=== PATIENT | male | born 1975 | race Caucasian/White ===

== ENCOUNTER 2017-10-28 09:48 | Observation (INO) | payer MEDICAID, SELFPAY ==
[2017-10-28] MEDS ORDERED: Nitroglycerin 2% Ointment 1 INCH/1 GM Packet ONE (10:22)
[2017-10-28 10:40] LABS: #Basophils 0.1 thou/uL (0.0-0.2); #Eosinphils 0.1 thou/uL (0.0-0.7); #Lymphocytes 1.5 thou/uL (1.20-3.40); #Monocytes 0.4 thou/uL (0.11-0.59); #Neutrophils 8.8 thou/uL (1.40-6.50); %Basophils 0.7 % (0.0-1.0); %Eosinophils 0.9 % (0.0-10.0); %Neutrophils 80.4 % (42.0-75.0); Mean Corpuscular Hemoglobin 33.8 pg (27.0-31.0); Mean Corpuscular Volume 96.4 fL (78.0-98.0); Mean Platelet Volume 7.6 fL (7.4-10.4); Platelet Count 147 thou/uL (130-400); RBC Distribution Width 11.6 % (11.5-14.5); Red Blood Cell (RBC) Count 4.15 mill/uL (4.70-6.10); White Blood Cell (WBC) Count 10.9 thou/uL (4.8-10.8)
[2017-10-28 11:05] LABS: ALT (SGPT) 40 U/L (8-55); AST (SGOT) 191 U/L (5-34); Albumin 4.5 g/dL (3.5-5.0); Alkaline Phosphatase 597 U/L (40-150); Anion Gap 27 mmol/L (10-20); BUN (Urea Nitrogen) 4 mg/dL (8.9-20.6); Bilirubin, Total 1.3 mg/dL (0.2-1.2); CK (CPK) 79 U/L (30-200); Calc. Creatinine Clearance 0 mL/min (70-130); Calcium 9.4 mg/dL (7.8-10.44); Carbon Dioxide 21 mmol/L (22-29); Chloride 94 mmol/L (98-107); Estimated GFR-MDRD Greater than 90; Globulin 4.4 g/dL (2.4-3.5); Glucose 100 mg/dL (70-105); Potassium 3.6 mmol/L (3.5-5.1); Protein, Total 8.9 g/dL (6.0-8.3); Sodium 138 mmol/L (136-145)
[2017-10-28 11:09] LABS: CKMB 1.1 ng/mL (0-6.6); Troponin I Less than 0.010 ng/mL (< 0.028)
--- NOTE | 2017-10-28 11:18 | RAD ---
CHEST 1 VIEW: Date: 10/28/17 HISTORY: Chest pain. COMPARISON: None. FINDINGS: Normal cardiac silhouette. Pulmonary vessels and hilum are normal. Costophrenic angles are clear. No consolidation or mass. No pneumothorax or osseous abnormalities. IMPRESSION: No acute cardiopulmonary process. POS: [facility]
[2017-10-28] MEDS ORDERED: Senokot 8.6 MG TAB PO PRN (11:51)
[2017-10-28] MEDS ORDERED: Nitroglycerin 0.4 MG TAB (25 Tab Bottle) PO PRN (11:53)
[2017-10-28] MEDS ORDERED: Nicotine 14 MG PATCH TD SCH ×2 (12:00→12:30)
--- NOTE | 2017-10-28 12:25 | HP ---
PRIMARY CARE PROVIDER: None. CHIEF COMPLAINT: Chest pain. HISTORY OF PRESENT ILLNESS: Mr. Feliciano is a pleasant 42-year-old gentleman, who was seen at [facility] on 10/28/2017. He presented to the emergency room complaining of chest pain. He reports that about 8 years ago, he was diagnosed with tuberculosis. He was treated for it. A norm se used to his house and using the medication. During one of those visits, he was found to have elev ated blood pressure. He was started on blood pressure medication and was switched through several di fferent blood pressure medications because his blood pressure continued to be high. He stopped takin g blood pressure medications altogether. last December, he had back surgery. At that time, he was noted to have elevated blood pressure and wa s restarted on the blood pressure medications, but he subsequently stopped taking them. He reports that since last December, he has had on and off chest pain, retrosternal, occasionally jenna p, occasionally dull, 8-9/10 at its worst, nonradiating, no known aggravating or relieving factors. The chest pain is accompanied by lightheadedness and diaphoresis, but not by shortness of breath. He denies any cough or fever. His last alcohol drink was at 9:00 a.m. today. REVIEW OF SYSTEMS: All other systems reviewed and found to be negative. PAST MEDICAL HISTORY: Hypertension. PAST SURGICAL HISTORY: Low back surgery in 12/2016. SOCIAL HISTORY: The patient drinks vodka around the clock. He smokes half a pack of cigarettes a da y. He denies recreational drug use. FAMILY HISTORY: No family history of coronary artery disease. ALLERGIES: No known drug allergies. CURRENT MEDICATIONS: None. PHYSICAL EXAMINATION: GENERAL: Mr. Feliciano is awake and alert, not in acute distress. He is at times tearful. VITAL SIGNS: Blood pressure is 144/95, pulse 97, respiratory rate 14, and oxygen saturation 97% on r oom air. He is afebrile. EYES: No scleral icterus. No conjunctival pallor. He has conjunctival erythema. ENT: Moist mucosal membranes, no oropharyngeal erythema or exudates. NECK: Supple, nontender, trachea is midline. RESPIRATORY: Accessory muscles of breathing are not active. Chest wall movements are symmetric bila terally. LUNGS: Clear to auscultation without wheeze, rhonchi or crepitations. CARDIOVASCULAR: S1 and S2 are heard, regular. Peripheral pulses palpable. No carotid bruit, no per icardial rub. ABDOMEN: Soft, nontender, bowel sounds are heard, no hepatomegaly, no splenomegaly. NEUROLOGIC: Cranial nerves II-XII intact. Deep tendon reflexes are 2+. MUSCULOSKELETAL: Power is 5/5 in all 4 extremities. SKIN: Multiple tattoos present. LYMPHATIC: No cervical lymphadenopathy. PSYCHIATRIC: Occasionally tearful, oriented to person and place, not to time. LABORATORY DATA: Mr. Feliciano's labs and investigations were reviewed. I reviewed his electrocardio gram, which shows normal sinus rhythm with diffuse T-wave flattening/inversion. I also reviewed his chest x-ray, which does not show any pulmonary infiltrates. He has leukocytosis with 10,900 white ce lls, of which 80% are neutrophils, normal hemoglobin, normal platelet count, normal sodium, normal po tassium, decreased carbon dioxide of 21, elevated anion gap of 27, low creatinine of 0.58, normal abhilash cium, elevated total bilirubin of 1.3, elevated AST of 191, normal ALT of 40, elevated alkaline phosp hatase of 597, normal creatinine kinase, elevated total protein of 8.9 and elevated globulin of 4.4. Troponin I is normal. ASSESSMENT AND PLAN: Mr. Feliciano is a pleasant 42-year-old gentleman, who was seen at [facility] on 10/28/2017. His problem list includes: 1. Chest pain: Mr. Parry will be admitted to the hospital for further workup. I am ordering a nu clear stress test. We will also monitor him on telemetry. Further management depending on outcome o f the test. 2. Alcohol abuse: Patient has been counseled regarding alcohol cessation. We will start him on ASE protocol. 3. Anion gap metabolic acidosis. Likely secondary to lactic acidosis from chronic alcohol abuse. A lso, it is possible that he has a starvation ketosis. I will check a beta hydroxybutyrate level. We will check lactate level. We will provide intravenous fluids. 4. Abnormal liver function test: Likely secondary to chronic alcohol abuse. We will recheck his LF Ts tomorrow. LEVEL OF RISK: High. LEVEL OF COMPLEXITY: High.
[2017-10-28] MEDS ORDERED: Acetaminophen 500 MG TAB ONE ×2 (12:27→12:31)
[2017-10-28 13:08] LABS: Lactic Acid 2.3 mmol/L (0.5-2.2)
[2017-10-28 14:03] LABS: Troponin I Less than 0.010 ng/mL (< 0.028)
[2017-10-28] MEDS: Sodium Chloride 0.9% 1,000 ML IV SCH (16:16)
[2017-10-28 16:19] VITALS: BMI 19.3
[2017-10-28 16:53] LABS: Troponin I Less than 0.010 ng/mL (< 0.028)
[2017-10-28] MEDS: Ondansetron HCl/PF 4 MG/2 ML Vial IVP PRN ×2 (17:22→23:06)
[2017-10-28] MEDS ORDERED: Diazepam 5 MG TAB PO SCH (18:15)
[2017-10-29] MEDS: Sodium Chloride 0.9% 1,000 ML IV SCH (00:18)
[2017-10-29 05:12] LABS: ALT (SGPT) 32 U/L (8-55); AST (SGOT) 161 U/L (5-34); Albumin 3.9 g/dL (3.5-5.0); Alkaline Phosphatase 505 U/L (40-150); Anion Gap 23 mmol/L (10-20); BUN (Urea Nitrogen) 4 mg/dL (8.9-20.6); Calc. Creatinine Clearance 117 mL/min (70-130); Calcium 8.7 mg/dL (7.8-10.44); Carbon Dioxide 22 mmol/L (22-29); Chloride 96 mmol/L (98-107); Estimated GFR-MDRD Greater than 90; Globulin 3.5 g/dL (2.4-3.5); Glucose 82 mg/dL (70-105); Potassium 3.1 mmol/L (3.5-5.1); Protein, Total 7.4 g/dL (6.0-8.3); Sodium 138 mmol/L (136-145)
[2017-10-29 08:28] LABS: Lactic Acid 0.7 mmol/L (0.5-2.2)
[2017-10-29] MEDS ORDERED: Multivitamins, Adult 10 ML, Thiamine HCl 100 MG, Folic Acid 1 MG in Dextrose 5 %-0.45 %... IV SCH (09:00)
[2017-10-29] MEDS ORDERED: Aspirin 325 MG TAB PO SCH ×3 (09:00→13:30)
[2017-10-29] MEDS ORDERED: Nicotine 14 MG PATCH TD SCH (09:00)
[2017-10-29] MEDS ORDERED: Regadenoson 0.4 MG/5 ML SYRINGE ONE (10:39)
--- NOTE | 2017-10-29 11:32 | NM ---
CARDIAC SPECT: CLINICAL HISTORY: 42-year-old male with chest pain, hypertension, and smoker. TECHNIQUE: A myocardial perfusion scan was performed using the single isotope one day protocol with technetium-9 9m sestamibi. 10 mCi were injected intravenously for the rest exam followed by 30 mCi for the stress exam. Pharmacologic stress with Adenosine was monitored and interpreted by Aj Burgos NP. FINDINGS: No fixed or reversible defects are seen. GATED SPECT LVEF: 44%. WALL MOTION EXAM: Global hypokinesis. IMPRESSION: No evidence of reversible ischemia. POS: [facility]
--- NOTE | 2017-10-29 12:13 | PDOC.PN ---
- Subjective Encounter Start Date: 10/29/17 Encounter Start Time: 12:11 Subjective: chronic atypical chest pain - Objective Vital Signs & Weight: Vital Signs (12 hours) Temp Pulse Resp BP BP Pulse Ox 10/29/17 11:52 98.2 F 90 20 129/88 99 10/29/17 08:00 98.6 F 100 18 10/29/17 03:35 98.6 F 100 18 156/70 H 94 L 10/29/17 02:20 96 Weight Weight 127 lb 8 oz I&O: 10/28/17 10/29/17 10/30/17 06:59 06:59 06:59 Intake Total 1000 Output Total 300 Balance 700 Result Diagrams: 10/28/17 10:31 10/29/17 04:25 Phys Exam - Physical Examination Neck: no JVD Respiratory: clear to auscultation bilateral Cardiovascular: RRR, no significant murmur Gastrointestinal: soft, non-tender, positive bowel sounds Musculoskeletal: no edema Dx/Plan (1) Chest pain Code(s): R07.9 - CHEST PAIN, UNSPECIFIED Status: Acute Qualifiers: Chest pain type: other chest pain Qualified Code(s): R07.89 - Other chest pain; R07.8 - Other chest pain (2) Alcoholism Code(s): F10.20 - ALCOHOL DEPENDENCE, UNCOMPLICATED Status: Chronic (3) Hepatitis, alcoholic Code(s): K70.10 - ALCOHOLIC HEPATITIS WITHOUT ASCITES Status: Acute Qualifiers: Ascites presence: without ascites Qualified Code(s): K70.10 - Alcoholic hepatitis without ascites - Plan banana bag -: cardiology consult * .
--- NOTE | 2017-10-29 13:33 | CON ---
DATE OF CONSULTATION: 10/29/2017 REASON FOR CONSULTATION: Chest pain and abnormal stress test. HISTORY OF PRESENT ILLNESS: Mr. Feliciano is a very pleasant 42-year-old white gentleman who comes to the hospital for chest pain. He has a history of alcohol use, a large amount daily. He cannot func tion without drinking his vodka. He came in for chest pain. He has been having on and off pain for the last few months, occasional sharp. He came in as it was just not getting any better. He had neg ative troponins x3 so he underwent a stress test, nuclear stress and he was found to have no evidence of reversible ischemia; however, his LV function was reduced at 44% with global hypokinesis. He tel ls me that he has been told in the past that he does have a weak heart. He does not remember exactly how much, he just remembers being told that his heart had to pump too hard. Otherwise, he tells me that he does not like to drink, but he feels he has to, otherwise, he will go into withdrawal. He h as tried it in the past. He had hallucinations back in April when he had a back surgery. PAST MEDICAL HISTORY: 1. Hypertension. 2. Noncompliance. 3. Alcohol abuse. PAST SURGICAL HISTORY: Low back surgery in December of last year. OUTPATIENT MEDICATIONS: None. ALLERGIES: No known drug allergies. SOCIAL HISTORY: Drinks vodka pretty much all day long, as much as he can get his hands on. He smoke s half a pack of cigarettes a day and no drug use. FAMILY HISTORY: Noncontributory. REVIEW OF SYSTEMS: Twelve point review of systems was done and is all negative unless stated in the history of present illness. PHYSICAL EXAMINATION: VITAL SIGNS: Temperature 98.2, pulse 90, respiration rate 20, satting 99% on room air, blood pressur e 129/88. GENERAL: Awake, alert, oriented x3, in no distress. He has a little tremor on both hands. He tells me he feels he might be going into withdrawal soon. HEENT: Normocephalic, atraumatic. NECK: Supple. LUNGS: Clear. CARDIOVASCULAR: S1, S2, no S3, S4, no murmurs. ABDOMEN: Soft with positive bowel sounds. EXTREMITIES: No edema. SKIN: Warm and dry. LABORATORY WORK: Reviewed. Troponins were negative x3. CBC with a white count of 10, hemoglobin of 14, hematocrit of 40, platelet count of 147. Chemistries with anion gap metabolic acidosis at 23, c tarsha in at 27, creatinine 0.68 with a normal GFR. AST is 191, back down to 161, ALT 32, alkaline phos phatase of 505, albumin of 3.9. Beta hydroxybutyrate was elevated as well. EKG was reviewed. Stress test was reviewed. Chest x-ray was reviewed. ASSESSMENT AND PLAN: 1. New onset dilated cardiomyopathy: Most likely nonischemic from alcohol use. 2. Chest pain. No ischemia on MPI. 3. Alcohol abuse. 4. Tobacco use. PLAN: 1. Alcohol cessation counseling was performed. 2. We will start him on heart failure medications. We will put him on Coreg 3.125 mg b.i.d., and li sinopril 2.5 mg daily. His blood pressures being in the 150s should be able to tolerate this. 3. The biggest problem with him is going to be compliance as he has been on blood pressure medicatio ns in the past several times and he just stops them a few days later. I told him that alcohol is kil ling his heart muscle and eventually this is going to be his demise. He states that he would like to stop drinking, but he always goes into withdrawal so he feels the need to continue to drink. If he goes into withdrawal here I would advise keeping him in the hospital until he goes through his withdr awal process. 4. We will get an echocardiogram today to have a new baseline and make sure his valves are not an is marcello. Thank you for allowing me to participate in the care of your patient. I will follow.
[2017-10-29 15:55] VITALS: BP 140/92; TEMP 99.6
[2017-10-29] MEDS ORDERED: Carvedilol 3.125 MG TAB PO SCH (17:00)
--- NOTE | 2017-10-29 22:18 | DIS ---
DATE OF ADMISSION: 10/28/2017 DATE OF DISCHARGE: 10/29/2017 [facility] call admission for Court. DISPOSITION: Discharge to home. DISCHARGE MEDICATIONS: Lisinopril 2.5 mg a day, Coreg 3.125 mg twice a day, and thiamine 100 mg a da y. FINAL DIAGNOSES: Cardiomyopathy, probably alcoholic, noncardiac chest pain, alcoholic hepatitis and alcoholism. DIET: No restrictions. PENDING AT THE TIME OF DISCHARGE: Nothing. CODE STATUS: FULL. HOSPITAL COURSE: The patient admitted with chest pain off and on for months. He has a history of un treated hypertension. He has a history of alcoholism. PERTINENT LABORATORY DATA: CBC: White count 10.9, hemoglobin 14.0, platelet count 147,000. His com p metabolic profile revealed a bilirubin mildly elevated 1.3 and 2.0. Increased AST 191 and 161 ____ . His EKG revealed regular sinus rhythm with nonspecific ST changes. Nuclear medicine cardiac stres s test revealed no evidence of ischemia, but an EF of 44. Dr. Dimitry Kaplan was consulted. An ech ocardiogram was done, which revealed an EF of 40% to 45%. He recommended discharge . The patie nt has been told he needs to obtain a local doctor. He will be given a list of [facility] doc tors and follow up in a week. He has been advised of the need to undergo alcohol detox at some point in time. He has been told of the risk of severe liver and cardiac damage if he continues on his cur rent alcoholic pass. He expresses understanding.
[2017-10-30] MEDS ORDERED: Lisinopril 2.5 MG TAB PO SCH (09:00)
--- NOTE | 2017-10-31 14:42 | EKG ---
Test Reason : Blood Pressure : / mmHG Vent. Rate : 101 BPM Atrial Rate : 101 BPM P-R Int : 150 ms QRS Dur : 102 ms QT Int : 392 ms P-R-T Axes : 053 -23 -03 degrees QTc Int : 508 ms Sinus tachycardia Abnormal ECG Confirmed by BRANDEE KUMAR, SHANE Catherine ([id number]), editor managing newspaper MG FOSTER ([id number]) on 10/31/2017 2:42:16 PM Referred By: Confirmed By:SHANE IRVIN MD
== END 2017-10-29 17:41 | disposition home or self-care (01) ==
LOC: ERS 09:48 → ERHOLD 11:06 → 2SW 15:25
PROVIDERS: ADMIT Internal Medicine; ATTEND Internal Medicine
DX: R07.89 Other chest pain (principal); K70.10 Alcoholic hepatitis without ascites; I11.9 Hypertensive heart disease without heart failure; I43 Cardiomyopathy in diseases classified elsewhere; F17.210 Nicotine dependence, cigarettes, uncomplicated; F10.10 Alcohol abuse, uncomplicated; E87.2 Acidosis; R79.89 Other specified abnormal findings of blood chemistry; Z86.11 Personal history of tuberculosis; Z98.890 Other specified postprocedural states; Z91.19 Patient's noncompliance with other medical treatment and regimen
CPT/HCPCS: 36415; 71045; 78452; 80053; 82010; 82550; 82553; 83605; 84484; 85025; 93005; 93017; 93306; 94760; 96360; 96361; 96365; 96366; 96375; 96376; A9500; G0378; J2405; J2785; J3411; J7042

== ENCOUNTER 2017-11-21 13:06 | Inpatient (IN) | payer SELFPAY ==
[2017-11-21 14:05] LABS: Bilirubin Small (Negative); Blood, Urine Small (Negative); Glucose, Urine (Dipstick) Negative (Negative); Leukocyte Small (Negative); Nitrite Negative (Negative); Protein, Urine (Dipstick) 100 mg/dL (Neg-Trace)
[2017-11-21 14:08] LABS: Clarity CLEAR (Clear)
[2017-11-21 14:10] LABS: Bacteria/HPF 1+ HPF (None Seen); Hyaline Casts/LPF NONE SEEN LPF (0-3 Hyaline); RBC/HPF 0-3 HPF (0-3); Squamous Epithelial 0-3 HPF (0-3)
[2017-11-21 14:12] LABS: #Basophils 0.1 thou/uL (0.0-0.2); #Eosinphils 0.1 thou/uL (0.0-0.7); #Lymphocytes 1.3 thou/uL (1.20-3.40); #Monocytes 0.4 thou/uL (0.11-0.59); #Neutrophils 7.3 thou/uL (1.40-6.50); %Basophils 0.9 % (0.0-1.0); %Eosinophils 0.8 % (0.0-10.0); %Lymphocytes 14.6 % (21.0-51.0); %Neutrophils 79.8 % (42.0-75.0); Hemoglobin 11.8 g/dL (14.0-18.0); Mean Corpuscular HGB CONC 34.1 g/dL (32.0-36.0); Mean Corpuscular Hemoglobin 32.5 pg (27.0-31.0); Mean Corpuscular Volume 95.4 fL (78.0-98.0); Mean Platelet Volume 8.8 fL (7.4-10.4); Platelet Count 79 thou/uL (130-400); RBC Distribution Width 11.6 % (11.5-14.5); Red Blood Cell (RBC) Count 3.62 mill/uL (4.70-6.10); White Blood Cell (WBC) Count 9.2 thou/uL (4.8-10.8)
[2017-11-21 14:17] LABS: Amphetamine Not Detected (NotDetected); Barbiturates Screen Not Detected (NotDetected); Benzodiazepine Screen Not Detected (NotDetected); Cocaine Metabolite Screen Not Detected (NotDetected); Medtox Reader # READER 4; Methadone Not Detected (NotDetected); Methamphetamine Not Detected (NotDetected); Opiate Screen Not Detected (NotDetected); Oxycodone Screen Not Detected (NotDetected); Phencyclidine (PCP) Not Detected (NotDetected); THC/Cannabinoid Screen Not Detected (NotDetected); Tricyclic Screen Not Detected (NotDetected)
[2017-11-21 14:18] LABS: Medtox Control Line Valid? VALID (VALID)
[2017-11-21 14:31] LABS: ALT (SGPT) 30 U/L (8-55); AST (SGOT) 115 U/L (5-34); Acetaminophen Less than 6.0 mcg/mL (10.0-30.0); Albumin 3.8 g/dL (3.5-5.0); Alcohol 270 mg/dL (Less than 10); Alkaline Phosphatase 409 U/L (40-150); Anion Gap 16 mmol/L (10-20); BUN (Urea Nitrogen) 6 mg/dL (8.9-20.6); Bilirubin, Total 0.9 mg/dL (0.2-1.2); CK (CPK) 62 U/L (30-200); Calc. Creatinine Clearance 0 mL/min (70-130); Calcium 7.9 mg/dL (7.8-10.44); Carbon Dioxide 23 mmol/L (22-29); Chloride 101 mmol/L (98-107); Estimated GFR-MDRD Greater than 90; Glucose 142 mg/dL (70-105); Potassium 3.1 mmol/L (3.5-5.1); Protein, Total 6.8 g/dL (6.0-8.3); Salicylate Less than 8.0 mg/dL (15.0-30.0); Sodium 137 mmol/L (136-145)
[2017-11-21] MEDS ORDERED: GLUCAGON IVPB SCH (15:15)
[2017-11-21] MEDS ORDERED: SODIUM CHLORIDE 0.9% IVPB SCH (15:15)
[2017-11-21] MEDS ORDERED: Atropine Sulfate 1 mg/1 ml Vial IVP PRN (16:26)
[2017-11-21] MEDS ORDERED: Dextrose 5 % And 0.9 % NaCl 1,000 ML IV SCH (16:30)
[2017-11-21 16:35] LABS: INR-International Normal Ratio 1.2; Prothrombin Time 15.7 SEC (12.0-14.7)
[2017-11-21 16:41] LABS: Magnesium 1.1 mg/dL (1.6-2.6); Phosphorus 2.3 mg/dL (2.3-4.7)
[2017-11-21] MEDS ORDERED: Ondansetron ODT 4 MG TAB PO PRN (16:47)
[2017-11-21] MEDS ORDERED: Ondansetron HCl/PF 4 MG/2 ML Vial ONE (16:47)
[2017-11-21] MEDS ORDERED: Magnesium Sulfate 4 GM in Sodium Chloride 0.9% 250 ML 250 ML IVPB SCH (17:00)
[2017-11-21] MEDS ORDERED: cefTRIAXone\\ROCEPHIN 1 GM in Sodium Chloride 0.9% 100 ML IVPB SCH (18:00)
[2017-11-21] MEDS ORDERED: Milk Of Magnesia 30 ML UDCUP PO PRN (19:36)
[2017-11-21] MEDS ORDERED: Senokot 8.6 MG TAB PO PRN (19:36)
[2017-11-21] MEDS ORDERED: Mag-Al 1200 mg/1200 mg/30 ML UDCUP PO PRN (19:36)
[2017-11-21] MEDS ORDERED: Calcium Carbonate 500 MG ChewTAB PO PRN (19:36)
--- NOTE | 2017-11-21 19:42 | HP ---
DATE OF ADMISSION: 11/21/2017 PRIMARY CARE PHYSICIAN: Cristo Torres. CHIEF COMPLAINT: Drug overdose. HISTORY OF PRESENT ILLNESS: The patient is a 42-year-old male with chronic alcoholism with cardiomyo shailesh, presented to the emergency room with above complaints. The patient was discharged from [facility] weeks ago. He presented with chest discomfort at that time. Echocardiogram showed ejectio n fraction 40%-45% range. The patient was evaluated by Cardiology. Cardiology recommended carvedilo l 3.125 twice a day along with lisinopril. Lifestyle modification including alcohol cessation was em phasized. He was discharged home in a stable condition. The patient has been frustrated since he is not getting any help with alcohol rehab due to financial issues. Around 12:30 p.m., the patient took around 15 tablets of carvedilol. He was found at home b y his girlfriend who called the EMS. His blood pressure per EMS was 70/54 that improved with IV flui ds. He also received Zofran along with glucagon by the EMS. In the emergency room, he was started o n glucagon drip. His EKG showed sinus rhythm with T-wave depression in the lateral leads. PAST MEDICAL HISTORY: 1. Cardiomyopathy with ejection fraction 40%-45% secondary to chronic alcoholism. 2. Hypertension. 3. Chronic alcoholism. PAST SURGICAL HISTORY: Low back surgery in 2017. ALLERGIES: No known drug allergies. CURRENT HOME MEDICATIONS: Carvedilol 3.125 twice a day, lisinopril 2.5 mg daily, thiamine 100 mg chelle ly. SOCIAL HISTORY: The patient currently lives at home. He drinks alcohol heavily. He also smokes up to half pack a day. He denies any other recreational drug use. FAMILY HISTORY: Negative for heart disease. REVIEW OF SYSTEMS: The following complete review of systems was negative, unless otherwise mentioned in the HPI or below: Constitutional: Weight loss or gain, ability to conduct usual activities. Skin: Rash, itching. Eyes: Double vision, pain. ENT/Mouth: Nose bleeding, neck stiffness, pain, tenderness. Cardiovascular: Palpitations, dyspnea on exertion, orthopnea. Respiratory: Shortness of breath, wheezing, cough, hemoptysis, fever or night sweats. Gastrointestinal: Poor appetite, abdominal pain, heartburn, nausea, vomiting, constipation, or diarrhea. Genitourinary: Urgency, frequency, dysuria, nocturia. Musculoskeletal: Pain, swelling. Neurologic/Psychiatric: Anxiety, depression. Allergy/Immunologic: Skin rash, bleeding tendency. PHYSICAL EXAMINATION: VITAL SIGNS: Current vital signs showed temperature 98.7, respiration 18, pulse rate of 81, blood pr essure of 106/60 with O2 saturation 93% on room air. GENERAL: A 42-year-old male, in no significant distress. Has nausea. HEENT: Head atraumatic, normocephalic. Sclerae are anicteric. Dry mucous membranes. No oral lesio n. NECK: Supple, no JVD, no carotid bruit. LUNGS: Clear to auscultation bilaterally. HEART: S1, S2 present. Regular rate and rhythm. No rubs or gallops appreciated. ABDOMEN: Soft. Bowel sounds present. No rebound or guarding. EXTREMITIES: No edema or calf tenderness. NEUROLOGIC: Grossly nonfocal, moves all four extremities. Power was 5/5 in all extremities. PSYCHIATRY: Alert, awake, oriented x3. SKIN: Warm and dry. LYMPH NODES: No palpable lymph nodes in the neck. PERIPHERAL VASCULAR: Radial pulses palpable bilaterally, low volume. MUSCULOSKELETAL: No joint swelling or tenderness. LABORATORY FINDINGS: CBC showed WBC 9.2 with hemoglobin 11.8, platelets 79. INR 1.2, PT of 15.7. S odium 137, potassium 3.1, chloride 101, bicarb 23, BUN 6, creatinine 0.61, magnesium 1.1, phosphorus 2.3, lipase of 37. TSH 6.3. His alkaline phosphatase last month was 505. Urine drug screen was neg ative. Alcohol level was 270. Urinalysis showed 4-6 wbc with 1+ bacteria. EKG by my review as disc ussed above. Echocardiogram as discussed above. IMPRESSION: 1. Drug overdose with beta blockers in a suicidal attempt. 2. Alcohol intoxication. 3. Chronic alcoholism. 4. Electrolyte abnormalities. The patient has hypokalemia and hypomagnesemia. 5. Hypertension. 6. Chronic anemia. 7. Thrombocytopenia, probably secondary to alcoholism. His platelets were in normal range last raymundo h. 8. Mild coagulopathy, probably secondary to alcoholism. 9. Suspected urinary tract infection. 10. Cardiomyopathy with ejection fraction 40%-45%, suspected to be secondary to alcohol. 11. Chronically elevated alkaline phosphatase of unclear etiology. 12. Abnormal TSH. PLAN: The patient will be monitored in the intermediate care unit. We will replace electrolytes. W e will continue IV fluids at 150 mL an hour. Continue glucagon drip. Empiric antibiotics for UTI ad d on urine cultures. Atropine as needed if patient becomes bradycardic. We will consult [facility] when p atient is clinically stable. Monitor closely for volume overload. Intake and output will be monitor ed. Plan of care was discussed with the patient. He stated understanding.
[2017-11-21 19:54] LABS: Troponin I Less than 0.010 ng/mL (< 0.028)
[2017-11-21] MEDS: Ondansetron HCl/PF 4 MG/2 ML Vial IVP PRN (20:04)
[2017-11-21 20:34] LABS: Troponin I Less than 0.010 ng/mL (< 0.028)
[2017-11-21] MEDS: D5 0.9% NS w/ 20 mEq KCl 1,000 ML IV SCH (20:54)
[2017-11-21] MEDS ORDERED: Thiamine HCl 200 MG/2 ML VIAL IM SCH (21:00)
[2017-11-21] MEDS: Lorazepam 2 MG/ML VIAL SLOW IVP PRN (21:32)
[2017-11-21] MEDS: Docusate 100 MG CAP PO SCH (21:33)
[2017-11-21] MEDS: Famotidine 20 MG TAB PO SCH (21:33)
[2017-11-21] MEDS ORDERED: Diltiazem HCl 125 MG, Admixture Fee 1 EACH in Sodium Chloride 0.9% 100 ML IVPB SCH (22:45)
[2017-11-22] MEDS: D5 0.9% NS w/ 20 mEq KCl 1,000 ML IV SCH ×2 (03:23→10:06)
[2017-11-22] MEDS: Lorazepam 2 MG/ML VIAL SLOW IVP PRN (04:15)
[2017-11-22 04:42] LABS: #Lymphocytes 0.9 thou/uL (1.20-3.40); #Monocytes 0.4 thou/uL (0.11-0.59); #Neutrophils 4.6 thou/uL (1.40-6.50); %Basophils 0.8 % (0.0-1.0); %Eosinophils 0.6 % (0.0-10.0); %Monocytes 7.4 % (0.0-10.0); %Neutrophils 76.2 % (42.0-75.0); Hemoglobin 11.6 g/dL (14.0-18.0); Mean Corpuscular HGB CONC 34.2 g/dL (32.0-36.0); Mean Corpuscular Hemoglobin 32.6 pg (27.0-31.0); Mean Corpuscular Volume 95.1 fL (78.0-98.0); Mean Platelet Volume 9.2 fL (7.4-10.4); Platelet Count 62 thou/uL (130-400); RBC Distribution Width 11.6 % (11.5-14.5); Red Blood Cell (RBC) Count 3.56 mill/uL (4.70-6.10)
[2017-11-22 05:07] LABS: ALT (SGPT) 28 U/L (8-55); AST (SGOT) 123 U/L (5-34); Albumin 3.6 g/dL (3.5-5.0); Alkaline Phosphatase 392 U/L (40-150); Anion Gap 14 mmol/L (10-20); BUN (Urea Nitrogen) 5 mg/dL (8.9-20.6); Bilirubin, Total 1.6 mg/dL (0.2-1.2); Calc. Creatinine Clearance 134 mL/min (70-130); Calcium 7.8 mg/dL (7.8-10.44); Carbon Dioxide 23 mmol/L (22-29); Chloride 105 mmol/L (98-107); Estimated GFR-MDRD Greater than 90; Globulin 2.9 g/dL (2.4-3.5); Glucose 127 mg/dL (70-105); Magnesium 1.8 mg/dL (1.6-2.6); Potassium 3.2 mmol/L (3.5-5.1); Protein, Total 6.5 g/dL (6.0-8.3); Sodium 139 mmol/L (136-145)
[2017-11-22] MEDS: Docusate 100 MG CAP PO SCH ×2 (08:17→20:19)
[2017-11-22] MEDS: Famotidine 20 MG TAB PO SCH (08:17)
[2017-11-22] MEDS: Multivit, Therapeutic 1 TAB PO SCH (08:17)
[2017-11-22] MEDS: Folic Acid 1 MG TAB PO SCH (08:17)
[2017-11-22] MEDS ORDERED: Lorazepam 1 MG TAB PO PRN (08:37)
[2017-11-22] MEDS: Magnesium Chloride 64 MG TAB PO SCH ×2 (08:55→20:15)
[2017-11-22] MEDS ORDERED: Lorazepam 2 MG/ML VIAL SLOW IVP PRN (09:00)
[2017-11-22] MEDS ORDERED: Magnesium Oxide 400 MG TAB PO SCH (09:00)
--- NOTE | 2017-11-22 12:44 | CON ---
DATE OF CONSULTATION: 11/22/2017 SERVICE: Pulmonary Medicine. REASON FOR CONSULTATION: [facility] patient. HISTORY OF PRESENT ILLNESS: The patient is a 42-year-old white male with past medical history significant for psychiatric issues. He also has a very heavy history of alcohol use and has cardiomyopathy associated with that. Either way , he was discharged from this facility about 3 weeks ago. He drinks very heavily. He presented to the emergency department after ingesting a significant amount of beta blockers, in alcohol. He was bradycardic and hypotensive. He was given some fluid resuscitation and watched closely. His blood pressure improved, his heart rate is actually back to normal. He did receive some glucagon by emergency services. He stabilized very well. He denies having any fevers, chills, cough, nausea, vomiting, diarrhea, sputum production, shortness of breath, chest pain, palpitations, abdominal discomfort , diarrhea, hot, red, swollen joints, or new arthralgias. He has not been having any night sweats. Prior to this event, he was in his usual state of health. PAST MEDICAL HISTORY: 1. Chronic systolic heart failure, secondary to a nonischemic cardiomyopathy. 2. Alcohol abuse. 3. Hypertension. PAST SURGICAL HISTORY: Chronic back pain. ALLERGIES: No known drug allergies. MEDICATIONS: List of his inpatient medications were reviewed. Multiple updates were made. SOCIAL HISTORY: He drinks heavily. He smokes a pack a day. He has a 20-pack- year history of smoking. He denies any street drugs. He has no exposure to chemicals, dust, asbestos, or tuberculosis. FAMILY HISTORY: Noncontributory. REVIEW OF SYSTEMS: General, head, ears, eyes, nose, throat, cardiovascular, respiratory, GI, , musculoskeletal, neurologic, and skin is negative except as mentioned in the HPI. PHYSICAL EXAMINATION: VITAL SIGNS: Afebrile, pulse 119, blood pressure 126/85, respirations 16, saturation 96% on room air. GENERAL: The patient is awake, alert, in no apparent distress. LUNGS: Excellent air entry. There is no prolonged expiratory phase, wheezing, rhonchi, or crackles present. HEART: Normal rate, regular. ABDOMEN: Soft, nontender, nondistended. Bowel sounds are positive. MUSCULOSKELETAL: No cyanosis or clubbing. No pitting in the bilateral lower extremities. NEUROLOGIC: Grossly nonfocal. LABORATORY DATA: WBC 6.0, hemoglobin 11.6, platelets 62,000. INR 1.2. Basic metabolic profile and liver function studies are essentially unremarkable except for a total bilirubin of 1.6, which is gently up-trending. T4 is 0.95. TSH 6.3. AST 123, gently up-trending. ALT falls within the normal limits. Alkaline phosphatase is downtrending. Urinalysis is essentially unremarkable except for minimal proteinuria. Plasma alcohol level was previously 270, but urine drug screen, salicylate, and acetaminophen were, otherwise, unremarkable. Urine cultures negative to date. ASSESSMENT: 1. Suicide attempt secondary to beta alejandro overdose. 2. Alcohol abuse. 3. Abnormal AST. 4. Thrombocytopenia secondary to alcohol abuse. 5. Chronic systolic heart failure, euvolemic. DISCUSSION AND PLAN: The patient's acute issue is over. He is at increased risk of having withdrawal-type features, none of which he demonstrates presently. Anytime he goes more than 2 days without alcohol, he does have withdrawal symptoms. He has never had any seizures. As such, we will initiate him on a benzodiazepine taper. I will replace his potassium and magnesium. At this point, he can go to telemetry, but if he starts having any hallucinations, we will need to move him back to the ICU and initiate him on Precedex with aggressive monitoring. 70 minutes have been devoted to this patient in various activities. I personally reviewed all imaging studies and laboratory data noted within this document. For fifty percent of this time, I was interacting with the patient at the bedside or coordinating care with the care team. For the remainder of the time I was immediately available to the patient in the hospital unit. JACQUELINE
[2017-11-22] MEDS ORDERED: Diltiazem 125 MG in Sodium Chloride 0.9% 100 ML IVPB SCH (12:45)
[2017-11-22] MEDS ORDERED: Potassium Chloride 20 MEQ TAB PO SCH (12:45)
[2017-11-22] MEDS ORDERED: Aspirin 325 mg Enteric Coated Tablet PO SCH (13:00)
[2017-11-22] MEDS: Lorazepam 1 MG TAB PO SCH ×3 (13:14→23:24)
[2017-11-22] MEDS ORDERED: Potassium Chloride 10 MEQ TAB PO SCH (17:00)
[2017-11-22] MEDS ORDERED: Enoxaparin Sodium 40 MG/0.4 ML SYRINGE SC SCH (21:00)
--- NOTE | 2017-11-22 23:46 | PDOC.PN ---
- Subjective Encounter Start Date: 11/22/17 Encounter Start Time: 13:30 Patient seen and examined for overdose. No new complaints. Overnight events noted - on Cardizem drip for Afib with RVR. - Objective Resuscitation Status: Resuscitation Status FULL:Full Resuscitation MAR Reviewed: Yes Vital Signs & Weight: Vital Signs (12 hours) Temp Pulse Resp BP Pulse Ox 11/22/17 20:00 98.6 F 89 18 125/89 93 L 11/22/17 17:00 120 H 20 129/85 98 11/22/17 15:37 98.8 F 113 H 20 119/76 98 Weight Weight 135 lb I&O: 11/21/17 11/22/17 11/23/17 06:59 06:59 06:59 Intake Total 1727 2205.8 Output Total 550 Balance 1177 2205.8 Result Diagrams: 11/22/17 04:12 11/22/17 04:12 Additional Labs: Accuchecks 11/22/17 11/22/17 11/22/17 11:46 04:09 00:15 POC Glucose 136 H 134 H 113 H EKG Reviewed by me: Yes (Tele Afib) Phys Exam - Physical Examination Constitutional: NAD Respiratory: no wheezing, no rales, no rhonchi, clear to auscultation bilateral Cardiovascular: no significant murmur, irregular no heaves/pulsations Gastrointestinal: soft, non-tender, no distention, positive bowel sounds Musculoskeletal: no edema, pulses present Neurological: non-focal, normal sensation, moves all 4 limbs Dx/Plan - Plan DVT proph w/SCDs IMPRESSION: 1. Drug overdose with beta blockers in a suicidal attempt. s/p Glucagon drip 2. Afib with RVR - CHADS2 VASC score - 1 3. Chronic alcoholism with Alcohol intoxication. 4. Electrolyte abnormalities - hypokalemia and hypomagnesemia. 5. Hypertension. 6. Chronic anemia. 7. Thrombocytopenia/Mild coagulopathy, probably secondary to alcoholism. 8. Cardiomyopathy with ejection fraction 40%-45%, suspected to be secondary to alcohol. 9. Chronically elevated alkaline phosphatase of unclear etiology. PLAN: Cont Cardizem drip Consult Cardio in AM NPO past MN Low dose ASA for stroke prophylaxis - No Anticoag due to low plts ASE protocol AM labs [facility] consult when medically stable Laboratory Tests 11/22/17 11/22/17 04:12 04:12 Total Bilirubin 1.6 H AST 123 H Alkaline Phosphatase 392 H Free T4 0.95 Review of Systems - Review of Systems Respiratory: negative: Cough, Dry, Shortness of Breath, Hemoptysis, SOB with Excertion, Pleuritic Pain, Sputum, Wheezing Cardiovascular: negative: chest pain, palpitations, orthopnea, paroxysmal nocturnal dyspnea, edema, light headedness, other Gastrointestinal: negative: Nausea, Vomiting, Abdominal Pain, Diarrhea, Constipation, Melena, Hematochezia, Other - Medications/Allergies Allergies/Adverse Reactions: Allergies Allergy/AdvReac Type Severity Reaction Status Date / Time No Known Drug Allergies Allergy Verified 10/28/17 11:50 Medications: Current Medications Al Hydroxide/Mg Hydroxide (Maalox) 30 ml PO Q6H PRN PRN Reason: Heartburn or Indigestion Aspirin (Ecotrin) 325 mg PO DAILY [facility] Calcium Carbonate (Tums) 1,000 mg PO Q4H PRN PRN Reason: Heartburn or Indigestion Docusate Sodium (Colace) 100 mg PO BID [facility] Last Admin: 11/22/17 20:19 Dose: Not Given Enoxaparin Sodium (Lovenox) 40 mg SC 2100 [facility] Last Admin: 11/22/17 20:27 Dose: Not Given Folic Acid (Folvite) 1 mg PO DAILY [facility] Last Admin: 11/22/17 08:17 Dose: 1 mg Diltiazem HCl 125 mg/ Sodium (Chloride) 125 mls @ 5 mls/hr IVPB INF [facility]; Protocol Last Admin: 11/22/17 23:26 Dose: 125 mls Lorazepam (Ativan) 2 mg PO Q6HR [facility] Last Admin: 11/22/17 23:24 Dose: 2 mg Lorazepam (Ativan) 2 mg SLOW IVP Q30MIN PRN PRN Reason: Anxiety/Agitation Magnesium Chloride (Slow-Mag) 64 mg PO BID [facility] Last Admin: 11/22/17 20:15 Dose: 64 mg Magnesium Hydroxide (Milk Of Magnesium) 30 ml PO DAILYPRN PRN PRN Reason: Constipation Multivitamins (Theragran) 1 tab PO DAILY [facility] Last Admin: 11/22/17 08:17 Dose: 1 tab Ondansetron HCl (Zofran Odt) 4 mg PO Q6H PRN PRN Reason: Nausea/Vomiting Ondansetron HCl (Zofran) 4 mg IVP Q6H PRN PRN Reason: Nausea/Vomiting Last Admin: 11/21/17 20:04 Dose: 4 mg Potassium Chloride (Klor-Con 10) 10 meq PO BID[facility] Last Admin: 11/22/17 17:49 Dose: 10 meq Senna (Senokot) 2 tab PO HSPRN PRN PRN Reason: Constipation Thiamine HCl (Thiamine) 100 mg PO DAILY [facility] Last Admin: 11/22/17 08:17 Dose: 100 mg
[2017-11-23] MEDS: Lorazepam 2 MG/ML VIAL SLOW IVP PRN ×5 (00:07→16:33)
[2017-11-23] MEDS: Ondansetron HCl/PF 4 MG/2 ML Vial IVP PRN (00:37)
[2017-11-23] MEDS ORDERED: Furosemide 40 MG/4 ML VIAL ONE (00:41)
[2017-11-23] MEDS ORDERED: Furosemide 40 MG/4 ML VIAL SLOW IVP SCH (00:45)
[2017-11-23 01:03] LABS: CO2 Tension 49.4 mmHg (35.0-45.0); Calcium, Ionized 1.19 mmol/L (1.12-1.30); Hemoglobin (Hb) 13.6 g/dL (14.0-18.0); Potassium - ABG Lab 4.35 mmol/L (3.70-5.30)
[2017-11-23 01:04] LABS: O2 Tension (PaO2) 51.4 mmHg (80.0-100.0); Puncture Site RBRACH
[2017-11-23] MEDS ORDERED: Lacri-Lube Opth Oint 3.5 GM TUBE EA EYE PRN (01:50)
[2017-11-23] MEDS ORDERED: PROPOFOL 20 ML ONE (01:51)
[2017-11-23] MEDS ORDERED: Propofol 1,000 MG/100 ML VIAL IV ONE (01:51)
[2017-11-23] MEDS ORDERED: DISCONTINUE PREVIOUS NARCOTIC PAIN MEDICATIONS AND BENZODIAZEPINES FS SCH (01:57)
[2017-11-23] MEDS ORDERED: Propofol BOLUS 1,000 MG/100 ML VIAL IV PRN (01:57)
[2017-11-23] MEDS ORDERED: fentaNYL Citrate/PF 2,000 MCG in Sodium Chloride 0.9% 60 ML IV SCH (01:57)
[2017-11-23] MEDS ORDERED: Fentanyl BOLUS 250 ML IVPB PRN (01:57)
[2017-11-23] MEDS ORDERED: Ventilator Sedation Protocol 1 EACH FS SCH (02:00)
[2017-11-23] MEDS ORDERED: Acetaminophen 650 MG/20.3 ML UDCUP PO PRN (02:23)
[2017-11-23 02:25] LABS: #Basophils 0.1 thou/uL (0.0-0.2); #Eosinphils 0.2 thou/uL (0.0-0.7); #Lymphocytes 3.4 thou/uL (1.20-3.40); #Monocytes 0.8 thou/uL (0.11-0.59); #Neutrophils 13.1 thou/uL (1.40-6.50); %Basophils 0.7 % (0.0-1.0); %Eosinophils 0.9 % (0.0-10.0); %Lymphocytes 19.4 % (21.0-51.0); %Monocytes 4.4 % (0.0-10.0); %Neutrophils 74.7 % (42.0-75.0); Hemoglobin 12.6 g/dL (14.0-18.0); Mean Corpuscular HGB CONC 32.7 g/dL (32.0-36.0); Mean Corpuscular Hemoglobin 32.1 pg (27.0-31.0); Mean Corpuscular Volume 98.1 fL (78.0-98.0); Mean Platelet Volume 9.6 fL (7.4-10.4); Platelet Count 107 thou/uL (130-400); RBC Distribution Width 11.6 % (11.5-14.5); Red Blood Cell (RBC) Count 3.92 mill/uL (4.70-6.10); White Blood Cell (WBC) Count 17.6 thou/uL (4.8-10.8)
[2017-11-23 02:29] LABS: Actual Bicarbonate (HCO3a) 18.3 mEq/L (22-28); Base Excess (BEa) -6.4 mEq/L (-2.0 to +3.0); CO2 Tension 33.9 mmHg (35.0-45.0); Calcium, Ionized 1.07 mmol/L (1.12-1.30); Carboxyhemoglobin (COHb) 1.2 gm% (0.0-3.0); Hemoglobin (Hb) 12.5 g/dL (14.0-18.0); Potassium - ABG Lab 3.46 mmol/L (3.70-5.30); pH, Arterial 7.35 (7.35-7.45)
[2017-11-23] MEDS ORDERED: cefTRIAXone\\ROCEPHIN 2 GM in Sodium Chloride 0.9% 100 ML IVPB SCH (02:30)
[2017-11-23 02:35] LABS: O2 Tension (PaO2) 53.2 mmHg (80.0-100.0); Puncture Site RBRACH
[2017-11-23 02:36] LABS: ALV-art Gradient 617.425 (0-20)
[2017-11-23 02:37] LABS: ALT (SGPT) 33 U/L (8-55); AST (SGOT) 147 U/L (5-34); Albumin 3.9 g/dL (3.5-5.0); Alcohol Less than 10 mg/dL (Less than 10); Alkaline Phosphatase 418 U/L (40-150); Anion Gap 18 mmol/L (10-20); BUN (Urea Nitrogen) Less than 4 mg/dL (8.9-20.6); Bilirubin, Total 2.1 mg/dL (0.2-1.2); Calc. Creatinine Clearance 112 mL/min (70-130); Calcium 8.5 mg/dL (7.8-10.44); Carbon Dioxide 19 mmol/L (22-29); Chloride 103 mmol/L (98-107); Estimated GFR-MDRD Greater than 90; Globulin 3.4 g/dL (2.4-3.5); Glucose 244 mg/dL (70-105); Potassium 4.1 mmol/L (3.5-5.1); Protein, Total 7.3 g/dL (6.0-8.3); Sodium 136 mmol/L (136-145)
[2017-11-23] MEDS ORDERED: Azithromycin 500 MG in Sodium Chloride 0.9% 250 ML 250 ML IVPB SCH (03:00)
[2017-11-23] MEDS: Sodium Chloride 0.45% 1,000 ML IV SCH ×2 (03:30→21:09)
[2017-11-23] MEDS: Multivitamins, Adult 10 ML, Folic Acid 1 MG, Thiamine HCl 100 MG in Dextrose 5 %-0.45 %... IV SCH (03:59)
--- NOTE | 2017-11-23 04:58 | PRG ---
DATE OF SERVICE: 11/23/2017 SERVICE: Pulmonary Medicine. INTERVAL HISTORY: The patient did poorly overnight. I was asked to assess the patient about 1:00 in the morning because of increasing agitation and respiratory distress. He converted into sinus rhythm in the afternoon. He did well until about 11:00 at which point he started having increasing agitation, tachycardia, and hypertension. He got a dose of Ativan, which settled him down , but a couple hours later he was increasingly agitated. He had multiple bowel movements through the night. He cannot provide me with any additional elements of the history. He is in respiratory distress, and significantly agitated. We moved him to the ICU and initiated a Precedex drip after we identified him as having an acute hypercapnic and hypoxic respiratory failure. He failed BiPAP after a very brief trial and we subsequently intubated him. PHYSICAL EXAMINATION: VITAL SIGNS: Afebrile, pulse 115, respirations 32, saturation 96% on 100% FiO2 and a PEEP of 5. GENERAL: The patient is now intubated and sedated. HEENT: Normocephalic, atraumatic. Sclerae are white, conjunctivae pink. Oral and nasal mucosa is moist without lesions. LUNGS: There is good air entry. I do not appreciate any crackles at this time. There is no prolonged expiratory phase. No wheezing is identified. HEART: Tachycardic. Regular. ABDOMEN: Soft. Nontender, nondistended, bowel sounds are positive. MUSCULOSKELETAL: No cyanosis or clubbing. There is no pitting edema. If anything, there is a little skin tenting throughout. GENITOURINARY: Acevedo catheter is now in place. NEUROLOGIC: Grossly nonfocal. He is severely agitated, however. LABORATORY DATA: Morning laboratories were sent off early. His pH is 7.2, pCO2 is 49, pO2 is 52 on a nonrebreather at that time. IMAGING: Chest x-ray following intubation demonstrates an endotracheal tube, roughly 4 cm above the level of the steve. He has got new batwing infiltrates in the bilateral hilar regions, consistent with abrupt volume overload. Heart is enlarged. The left lower lobe is cut-off, but previously terribly remarkable. ASSESSMENT: 1. Acute hypoxic and hypercapnic respiratory failure. 2. Atrial fibrillation with rapid ventricular response, returned to sinus tachycardia. 3. Flash pulmonary edema. 4. Delirium tremens. 5. Alcohol abuse. 6. Chronic systolic heart failure. DISCUSSION AND PLAN: I honestly do not think the patient is terribly volume overloaded. I believe he went into abrupt heart failure associated with his tachyarrhythmia, and hypertension. This is in the setting of delirium tremens. We intubated him and we will keep him down with propofol over the next 24 hours. We will increase our oxygen and PEEP as tolerated. I will get an ABG shortly. Morning labs are currently pending. Pulmonary Critical Care will continue to follow along. His mortality rate is likely close to 50% given the severity of his presentation. Critical care time: 30 minutes. MTDD
--- NOTE | 2017-11-23 08:11 | ULT ---
GALLBLADDER ULTRASOUND: HISTORY: Right upper quadrant pain. FINDINGS: Real-time imaging of the right upper quadrant was performed. This shows a very thick-walled gallblad steven without evidence of gallstones. There is increased echogenicity to the liver. The liver also ap pears to be enlarged. It measures approximately 23 cm in length. The common duct is normal in calib er at 3 mm. The patient was sedated and, therefore, could not be evaluated for an ultrasound Serrano' s sign. He right kidney is normal in size and not obstructed. The pancreas is obscured. IMPRESSION: Hick-walled gallbladder. Some questionable gallbladder wall edema change. No gallstones are identif ied. This could indicate an acalculous cholecystitis. It could also be secondary to intrinsic liver disease. The liver itself appears enlarged and is of increased echogenicity suggesting fatty change . POS: [facility]
[2017-11-23] MEDS ORDERED: Aspirin 325 mg Enteric Coated Tablet PO SCH (09:00)
--- NOTE | 2017-11-23 09:49 | RAD ---
PORTABLE AP CHEST: Date: 11/23/17 HISTORY: Respiratory distress. COMPARISON: 10/28/17. FINDINGS: Cardiac silhouette is within normal limits. There are increased perihilar interstitial opacities bila terally. No focal consolidation or pleural fluid is appreciated. There is persistent elevation right hemidiaphragm. No other interval change. IMPRESSION: Increased perihilar interstitial opacities which may be related to either pulmonary edema or infectio us process. Follow-up evaluation to resolution is recommended. POS: [facility]
[2017-11-23] MEDS: Famotidine 20 MG TAB PER TUBE SCH ×2 (09:59→21:09)
[2017-11-23] MEDS: Folic Acid 1 MG TAB PO SCH (10:00)
[2017-11-23] MEDS: Docusate 100 MG CAP PO SCH ×2 (10:00→21:10)
[2017-11-23] MEDS: Aspirin 81 mg Enteric Coated Tablet PO SCH (10:00)
[2017-11-23] MEDS: Multivit, Therapeutic 1 TAB PO SCH (10:00)
[2017-11-23] MEDS: metroNIDAZOLE 500 MG in Premix Bag 1 BAG IVPB SCH ×2 (10:01→18:31)
--- NOTE | 2017-11-23 10:05 | RAD ---
PORTABLE AP CHEST XRAY: DATE: 11/23/17. HISTORY: On ventilator. COMPARISON: 11/23/17 at 1222 hours. FINDINGS: Endotracheal tube is now noted in place with the tip above the level of the thoracic inlet and overly ing th eT2-3 level. Increased perihilar interstitial opacities with alveolar opacities now present a s well. The left lung base is excluded from view. Cardiac silhouette is magnified by projection. N o other interval change. IMPRESSION: 1. Interval placement of an endotracheal tube, but the tip overlies the T2-3 level and above the lev el of the thoracic inlet. 2. Bilateral perihilar, interstitial, and alveolar opacities which have increased from recent study and could be related to worsening pulmonary edema or infectious process. POS: [facility]
--- NOTE | 2017-11-23 13:26 | OP ---
DATE OF PROCEDURE: 11/23/2017 SERVICE: Pulmonary Medicine PROCEDURE: Emergent endotracheal intubation. CONSENT: Procedure was performed emergently secondary to clinical deterioration and respiratory fail ure. STAFF PHYSICIAN: Rohan Mcmillan M.D. MEDICATIONS USED: Propofol 150 mg IV push. PREOPERATIVE DIAGNOSES: 1. Acute hypoxic and hypercapnic respiratory failure. 2. Delirium tremens. POSTPROCEDURE DIAGNOSES: 1. Acute hypoxic and hypercapnic respiratory failure. 2. Delirium tremens. DESCRIPTION OF PROCEDURE: Vital sign monitoring was accomplished by noninvasive hemodynamic monitori ng, pulse oximetry, and telemetry. In the supine position, the patient was preoxygenated With BiPAP and maintained with saturations of 98%. Following induction of anesthesia, a GlideScope was inserted through the mouth offering clear identification of the posterior oropharynx and laryngeal structures with a grade I view. An 7.5 [place] endotracheal tube was visualized passing through the vocal cords . Placement was confirmed by condensation in the endotracheal tube, and biaxillary chest auscultatio n. The endotracheal tube was secured at 23 cm, measured at the teeth. The patient was placed on mec hanical ventilation with good return of volumes. Post-procedure x-ray demonstrated good location for the endotracheal tube within the trachea. ESTIMATED BLOOD LOSS: None. COMPLICATIONS: Transient hypotension which resolved after 10 minutes.
[2017-11-23] MEDS: Propofol 1,000 MG/100 ML VIAL IV PRN ×2 (14:46→21:09)
--- NOTE | 2017-11-23 18:14 | CON ---
DATE OF CONSULTATION: 11/23/2017 CARDIOLOGY CONSULTATION REASON FOR CONSULTATION: Atrial fibrillation, rapid ventricular response. HISTORY OF PRESENT ILLNESS: Mr. Feliciano is a very pleasant 42-year-old white gentleman who came to the hospital after a drug overdose. He is a chronic alcoholic who was seen just 3 weeks ago for epis ode of chest discomfort. At that time, he was found to have a reduced EF at about 40%-45% with a nuc lear stress that showed no evidence of reversible ischemia, but a reduced EF. It was thought that he had a nonischemic cardiomyopathy secondary to chronic alcohol use. He drank a large amount of alcoh ol and he told me that he cannot stop because he goes into DTs with just a couple days of not drinkin g. He otherwise has a high blood pressure in the past. On last visit, he was started on a beta bloc ker and an TRIP inhibitor for heart failure and he was counseled on cessation of alcohol use. He come s in today as he apparently took about 15 tablets of the carvedilol in hopes to harm himself. Yue coyne found him and called EMS. Blood pressure was 70s/50s. He was given IV fluids, Zofran, glucagon and brought into the hospital. In the hospital, he eventually had to be intubated. He went into de lirium tremens and had to be intubated to protect his airway. Overnight, after intubation, he went i nto atrial fibrillation RVR, heart rate in the 150s, so Cardiology is being consulted. He was placed on a Cardizem drip, slowed down and eventually converted back to sinus, currently in sinus rhythm, r emains intubated. PAST MEDICAL HISTORY: Includes, 1. Nonischemic cardiomyopathy with EF of 40%-45%. This is from a negative stress test and a history of alcohol use. 2. Hypertension. 3. Chronic alcohol abuse. PAST SURGICAL HISTORY: Includes low back surgery in 2017. OUTPATIENT MEDICATIONS: Include, 1. Carvedilol 3.125 mg b.i.d. 2. Lisinopril 2.5 mg a day. 3. Thiamine 100 mg a day. ALLERGIES: No known drug allergies. SOCIAL HISTORY: Lives at home. Drinks heavy alcohol use. Smokes half a pack a day. No other drug use. FAMILY HISTORY: Noncontributory. REVIEW OF SYSTEMS: Unobtainable as the patient is sedated and intubated. PHYSICAL EXAMINATION: VITAL SIGNS: Temperature 98.7, however, at 1:00 p.m. today was 101.5, pulse 92, respiration rate 21, satting 97% on 40% FiO2, blood pressure 93/62. GENERAL: Sedated and intubated. LUNGS: Clear. CARDIOVASCULAR: S1, S2. No S3, S4. No murmurs. ABDOMEN: Soft with good bowel sounds. EXTREMITIES: No edema. SKIN: Warm and dry. LABORATORY WORK: Reviewed. CBC with a white count of 17, hemoglobin of 12, hematocrit of 38, platel et count of 107,000. Coags were reviewed. ABG was reviewed. Chemistry was reviewed, initially pota ssium of 3.2 overnight, earlier this morning back to 4.1, total bilirubin of 2.1, AST 147, ALT 43, al kaline phosphatase 418. Free T4 was 0.93. TSH was high at 6.3, likely sick euthyroid. UA reviewed. Toxicology reviewed. Alcohol was 270 on the th, less than 10 on the th. Abdominal ultrasound was reviewed. Thick walled gallbladder with edema. No gallstones. May have acalculous cholecystitis. Fatty liver changes. ASSESSMENT AND PLAN: 1. Atrial fibrillation with rapid ventricular response. 2. Nonischemic cardiomyopathy. 3. Dilated cardiomyopathy, ejection fraction at 40%-45%. 4. Alcohol abuse. 5. Delirium tremens and alcohol withdrawal. PLAN: 1. Continue supportive care. 2. Currently in normal sinus rhythm. If to recur, I would just slow him down with diltiazem a s long as his blood pressure allows. Otherwise, we will use an amiodarone drip. He would not be a g ood candidate for long-term amiodarone given his alcohol use and possible liver issues as well as pos sibility of having another episode of suicidal ideation. It would not be as easy to get him out of w ith antiarrhythmics as it was with just about almost 50 mg of carvedilol, which is not a toxic dose. 3. Continue to monitor on telemetry once extubated and more stable. 4. Currently blood pressure is too low to restart any beta alejandro or TRIP inhibitors. 5. We will follow. Thank you for letting us to participate in the care of your patient.
--- NOTE | 2017-11-23 23:19 | PDOC.PN ---
- Subjective Encounter Start Date: 11/23/17 Encounter Start Time: 09:30 -: non-verbal Patient seen and examined for overdose/Afib. Developed respiratory failure last night requiring intubation/mech Vent. - Objective Resuscitation Status: Resuscitation Status FULL:Full Resuscitation MAR Reviewed: Yes Vital Signs & Weight: Vital Signs (12 hours) Temp Pulse Resp BP Pulse Ox 11/23/17 22:27 93 118/90 11/23/17 22:00 21 H 11/23/17 20:00 21 H 116/91 H 98 11/23/17 18:14 93 11/23/17 18:13 97 11/23/17 18:00 22 H 11/23/17 16:00 98.4 F 25 H 11/23/17 15:04 83 101/72 11/23/17 14:00 21 H 11/23/17 12:55 84 104/72 11/23/17 12:00 98.7 F 21 H 101/73 Weight Admit Weight 135 lb Weight 156 lb 8.451 oz Most Recent Monitor Data Heart Rate from ECG 92 NIBP 113/86 NIBP BP-Mean 95 Respiration from ECG 21 SpO2 93 I&O: 11/22/17 11/23/17 11/24/17 06:59 06:59 06:59 Intake Total 1727 3617.8 1966.2 Output Total 063 568 7618 Balance 1177 3287.8 590.2 Result Diagrams: 11/24/17 04:42 11/24/17 04:42 Additional Labs: Accuchecks 11/23/17 11/23/17 17:26 12:49 POC Glucose 143 H 176 H Radiology Reviewed by me: Yes (CXR - ?Pulm edema) EKG Reviewed by me: Yes (Tele ST) Phys Exam - Physical Examination Constitutional: NAD On Mech Vent Respiratory: no wheezing Bibasilar rales with rhonchi, ET tube + Cardiovascular: no rub S2S2 +, tachycardic, No heaves/pulsations Gastrointestinal: soft, positive bowel sounds No guarding/rigidity Neuro/Psych - Cannot assess due to sedation Dx/Plan - Plan DVT proph w/SCDs IMPRESSION: 1. Acute hypoxic hypercapnic respiratory failure due to Pulm Edema 2. Drug overdose with beta blockers in a suicidal attempt requiring Glucagon drip 3. Afib with RVR - CHADS2 VASC score - 1 - Converted to SR 4. Chronic alcoholism with Alcohol intoxication with subsequent withdrawal 5. ?Acalculous cholecystitis 6. Hypertension. 7. Electrolyte abnormalities - hypokalemia and hypomagnesemia. 8. Thrombocytopenia/Mild coagulopathy, probably secondary to alcoholism. 9. Cardiomyopathy with ejection fraction 40%-45%, suspected to be secondary to alcohol. 10. Chronically elevated alkaline phosphatase of unclear etiology/Chronic anemia. [facility] per Cardio Low dose ASA for stroke prophylaxis - No Anticoag due to low plts Antibiotics started Cont thiamine/folic acid ASE protocol AM labs [facility] consult when medically stable Review of Systems - Review of Systems Other: Cannot obtain due to current mentation. - Medications/Allergies Allergies/Adverse Reactions: Allergies Allergy/AdvReac Type Severity Reaction Status Date / Time No Known Drug Allergies Allergy Verified 10/28/17 11:50 Medications: Current Medications Acetaminophen (Tylenol Elixir) 650 mg PO Q6H PRN PRN Reason: temp > 102 Al Hydroxide/Mg Hydroxide (Maalox) 30 ml PO Q6H PRN PRN Reason: Heartburn or Indigestion Albuterol/Ipratropium (Duoneb) 3 ml NEB [id number] [facility] Last Admin: 11/23/17 18:13 Dose: 3 ml Aspirin (Ecotrin) 81 mg PO DAILY [facility] Last Admin: 11/23/17 10:00 Dose: 81 mg Calcium Carbonate (Tums) 1,000 mg PO Q4H PRN PRN Reason: Heartburn or Indigestion Docusate Sodium (Colace) 100 mg PO BID [facility] Last Admin: 11/23/17 21:10 Dose: Not Given Famotidine (Pepcid) 20 mg PER TUBE BID [facility] Last Admin: 11/23/17 21:09 Dose: 20 mg Folic Acid (Folvite) 1 mg PO DAILY [facility] Last Admin: 11/23/17 10:00 Dose: Not Given Dexmedetomidine HCl 200 mcg/ (Sodium Chloride) 50 mls @ 0 mls/hr IVPB INF [facility]; Protocol Stop: 11/24/17 04:00 Last Admin: 11/23/17 21:09 Dose: 50 mls Fentanyl Citrate 2,000 mcg/ (Sodium Chloride) 100 mls @ 0 mls/hr IV INF [facility]; Protocol Stop: 12/23/17 01:57 Fentanyl Citrate (Fentanyl Bolus) 250 mls @ 0 mls/hr IVPB PRN PRN PRN Reason: Breakthrough pain/agitation Stop: 12/23/17 01:57 Sodium Chloride (1/2 Normal Saline) 1,000 mls @ 50 mls/hr IV .Q20H [facility] Last Admin: 11/23/17 21:09 Dose: 1,000 mls Multivitamins 10 ml/ Folic Acid 1 mg/ Thiamine HCl 100 mg / Dextrose/Sodium Chloride 1,011.2 mls @ 75 mls/hr IV Q24HR [facility] Stop: 11/25/17 17:29 Last Admin: 11/23/17 03:59 Dose: 1,011.2 mls Metronidazole 500 mg/ Device 100 mls @ 100 mls/hr IVPB 0200,1000,1800 [facility] Last Admin: 11/23/17 18:31 Dose: 100 mls Ciprofloxacin/Dextrose 400 mg/ (Device) 200 mls @ 200 mls/hr IVPB Q12HR [facility] Last Admin: 11/23/17 21:08 Dose: 200 mls Dexmedetomidine HCl 400 mcg/ (Sodium Chloride) 100 mls @ 0 mls/hr IVPB INF [facility] ; Protocol Lorazepam (Ativan) 2 mg SLOW IVP Q1H PRN PRN Reason: Breakthrough agitation Stop: 12/23/17 01:57 Last Admin: 11/23/17 16:33 Dose: 2 mg Magnesium Hydroxide (Milk Of Magnesium) 30 ml PO DAILYPRN PRN PRN Reason: Constipation Mineral Oil/White Petrolatum (Lacri-Lube Ointment) 0 gm EA EYE PRN PRN PRN Reason: Dry Eyes Last Admin: 11/23/17 04:26 Dose: 1 drop Multivitamins (Theragran) 1 tab PO DAILY [facility] Last Admin: 11/23/17 10:00 Dose: Not Given Discontinue Previous Narcotic Pain Medications And Benzodiazepines 1 each FS .ONE [facility] Stop: 12/23/17 01:57 Ondansetron HCl (Zofran Odt) 4 mg PO Q6H PRN PRN Reason: Nausea/Vomiting Ondansetron HCl (Zofran) 4 mg IVP Q6H PRN PRN Reason: Nausea/Vomiting Last Admin: 11/23/17 00:37 Dose: 4 mg Propofol (Diprivan) 1,000 mg IV INF PRN; Protocol PRN Reason: TO ACHIEVE GOAL RASS Stop: 12/23/17 01:57 Last Admin: 11/23/17 21:09 Dose: 1,000 mg Propofol (Diprivan Bolus) 20 mg IV Q5MIN PRN PRN Reason: BREAKTHROUGH AGITATION Stop: 12/23/17 01:57 Senna (Senokot) 2 tab PO HSPRN PRN PRN Reason: Constipation Thiamine HCl (Thiamine) 100 mg PO DAILY [facility] Last Admin: 11/23/17 10:01 Dose: Not Given
[2017-11-24] MEDS: Lorazepam 2 MG/ML VIAL SLOW IVP PRN ×2 (01:10→22:28)
[2017-11-24] MEDS: metroNIDAZOLE 500 MG in Premix Bag 1 BAG IVPB SCH ×3 (01:10→18:38)
[2017-11-24] MEDS: Propofol 1,000 MG/100 ML VIAL IV PRN ×3 (02:26→19:14)
[2017-11-24] MEDS: Multivitamins, Adult 10 ML, Folic Acid 1 MG, Thiamine HCl 100 MG in Dextrose 5 %-0.45 %... IV SCH (04:29)
[2017-11-24 05:18] LABS: ALT (SGPT) 22 U/L (8-55); AST (SGOT) 81 U/L (5-34); Albumin 3.1 g/dL (3.5-5.0); Alkaline Phosphatase 264 U/L (40-150); Anion Gap 13 mmol/L (10-20); BUN (Urea Nitrogen) Less than 4 mg/dL (8.9-20.6); Bilirubin, Total 1.6 mg/dL (0.2-1.2); Calc. Creatinine Clearance 184 mL/min (70-130); Calcium 8.1 mg/dL (7.8-10.44); Carbon Dioxide 19 mmol/L (22-29); Chloride 107 mmol/L (98-107); Estimated GFR-MDRD Greater than 90; Globulin 2.8 g/dL (2.4-3.5); Glucose 115 mg/dL (70-105); Potassium 3.1 mmol/L (3.5-5.1); Protein, Total 5.9 g/dL (6.0-8.3); Sodium 136 mmol/L (136-145)
[2017-11-24 05:26] LABS: Phosphorus 1.6 mg/dL (2.3-4.7)
[2017-11-24 05:47] LABS: #Eosinphils 0.1 thou/uL (0.0-0.7); #Monocytes 0.5 thou/uL (0.11-0.59); %Basophils 0.2 % (0.0-1.0); %Eosinophils 1.2 % (0.0-10.0); %Lymphocytes 13.4 % (21.0-51.0); %Neutrophils 78.2 % (42.0-75.0); Hemoglobin 11.7 g/dL (14.0-18.0); Mean Corpuscular HGB CONC 33.4 g/dL (32.0-36.0); Mean Corpuscular Hemoglobin 32.2 pg (27.0-31.0); Mean Corpuscular Volume 96.3 fL (78.0-98.0); Mean Platelet Volume 10.8 fL (7.4-10.4); PLT Morphology Comment Appears Decreased; Platelet Count 50 thou/uL (130-400); RBC Distribution Width 11.9 % (11.5-14.5); Red Blood Cell (RBC) Count 3.63 mill/uL (4.70-6.10); White Blood Cell (WBC) Count 7.6 thou/uL (4.8-10.8)
[2017-11-24 06:50] LABS: Actual Bicarbonate (HCO3a) 20.3 mEq/L (22-28); Base Excess (BEa) -0.7 mEq/L (-2.0 to +3.0); CO2 Tension 24.7 mmHg (35.0-45.0); O2 Tension (PaO2) 79.2 mmHg (80.0-100.0); pH, Arterial 7.53 (7.35-7.45)
[2017-11-24 06:51] LABS: ALV-art Gradient 167.995 (0-20); Carboxyhemoglobin (COHb) 0.9 gm% (0.0-3.0); Potassium - ABG Lab 2.74 mmol/L (3.70-5.30); Puncture Site LRA
[2017-11-24] MEDS: Aspirin 81 mg Enteric Coated Tablet PO SCH (08:41)
[2017-11-24] MEDS: Docusate 100 MG CAP PO SCH ×2 (08:42→20:16)
[2017-11-24] MEDS: Multivit, Therapeutic 1 TAB PO SCH (08:43)
[2017-11-24] MEDS: Folic Acid 1 MG TAB PO SCH (08:43)
[2017-11-24] MEDS ORDERED: Potassium Phosphate 30 MMOL in Sodium Chloride 0.9% 500 ML IVPB SCH (09:00)
[2017-11-24] MEDS ORDERED: Magnesium Sulfate 4 GM in Sodium Chloride 0.9% 250 ML 250 ML IVPB SCH (09:00)
[2017-11-24] MEDS: Famotidine 20 MG TAB PER TUBE SCH ×2 (09:56→20:16)
--- NOTE | 2017-11-24 14:41 | PRG ---
DATE OF SERVICE: 11/24/2017 SERVICE: Pulmonary Medicine. INTERVAL HISTORY: The patient is doing great from a respiratory standpoint. His oxygen requirements have improved dramatically over the last 24 hours. He cannot provide additional elements of the his tory, but otherwise he is perfectly comfortable on a significant amount of propofol and Precedex. PHYSICAL EXAMINATION: VITAL SIGNS: Afebrile, pulse 90, blood pressure 123/80, respirations 23, saturation 97% on 31% FiO2 and a PEEP of 5 at this time. HEENT: Normocephalic, atraumatic. Sclerae are white, conjunctivae pink. Oral and nasal mucosa is m oist without lesions. LUNGS: Decent air entry. There is no prolonged expiratory phase. Crackles are present, but improve d. HEART: Normal rate, regular. ABDOMEN: Soft, nontender, nondistended. Bowel sounds are positive. MUSCULOSKELETAL: No cyanosis or clubbing. There is no pitting in the bilateral lower extremities. NEUROLOGIC: Grossly nonfocal. LABORATORY DATA: WBC 7.6, hemoglobin 11.7, platelets 50,000. INR 1.2. PH 7.53, pCO2 of 25, pO2 of 79. Basic metabolic profile and liver function studies are essentially unremarkable/improving. Magn esium, phosphorus, and potassium are all low. Plasma alcohol level has come down to below the assay limit of 10. ASSESSMENT: 1. Acute hypoxic respiratory failure, secondary to flash pulmonary edema. 2. Atrial fibrillation with rapid ventricular response, return to sinus tachycardia. 3. Delirium tremens. 4. Alcohol abuse. 5. Chronic systolic heart failure. DISCUSSION AND PLAN: The patient is doing much better today. We will drop our minute volume by decr easing his respiratory rate to 13 and his pressure support and pressure control to 13. PEEP will vera p to 5, and his FiO2 will drop to 31%. We will continue to wean away oxygen requirements through domenic e. Once he is off of the propofol, just on the Precedex, we will consider him for extubation. The p atient is much better today than he was previously and hopefully will be able to get through this wit hout additional excitement. CRITICAL CARE TIME: 30 minutes.
--- NOTE | 2017-11-24 15:23 | PDOC.CTH ---
Cardiology Progress Note - Subjective Remains intubated, sedated. No more episodes of afib. - Objective Vital Signs Temp Pulse Resp BP Pulse Ox 11/24/17 14:49 87 127/91 H 11/24/17 14:00 19 11/24/17 12:21 90 123/80 11/24/17 12:19 89 22 H 95 11/24/17 12:00 18 11/24/17 10:05 90 11/24/17 10:00 21 H 11/24/17 08:00 99.5 F 18 132/96 H 11/24/17 07:34 98 11/24/17 06:42 89 11/24/17 06:00 21 H 11/24/17 04:00 21 H Admit Weight 135 lb Weight 157 lb 3.033 oz 11/23/17 11/24/17 11/25/17 06:59 06:59 06:59 Intake Total 3617.8 3183.2 190 Output Total 330 2426 1250 Balance 3287.8 757.2 -1060 - Physical Examination General/Neuro: other: (sedated intubated. ) Neck: no JVD present Lungs: CTA, unlabored respirations Heart: RRR Abdomen: NT/ND Extremities: other: (no edema.) - Telemetry Telemetry Rhythm: NSR - Labs Result Diagrams: 11/25/17 04:30 11/25/17 04:30 Troponin/CKMB Troponin I Less than 0.010 ng/mL (< 0.028) 11/21/17 19:35 - Assessment/Plan 1. Afib RVR, back in sinus. 2. Alcohol withdrawal. 3. Nonischemic CM EF at 40-45% 4. Alcohol abuse 5. Delirium tremens. PLAN: - Remains in sinus. - Supportive care. -
--- NOTE | 2017-11-24 23:30 | PDOC.PN ---
- Subjective Encounter Start Date: 11/24/17 Encounter Start Time: 15:00 Patient seen and examined for Overdose/Resp failure. On [facility] Vent - Objective Resuscitation Status: Resuscitation Status FULL:Full Resuscitation MAR Reviewed: Yes Vital Signs & Weight: Vital Signs (12 hours) Pulse Resp BP Pulse Ox 11/24/17 22:05 86 139/94 H 11/24/17 22:00 16 11/24/17 20:00 16 96 11/24/17 18:11 85 138/95 H 11/24/17 18:08 85 18 96 11/24/17 18:00 15 11/24/17 16:00 16 11/24/17 14:49 87 127/91 H 11/24/17 14:00 19 11/24/17 12:21 90 123/80 11/24/17 12:19 89 22 H 95 11/24/17 12:00 18 Weight Admit Weight 135 lb Weight 157 lb 3.033 oz Most Recent Monitor Data Heart Rate from ECG 83 NIBP 139/94 NIBP BP-Mean 109 Respiration from ECG 16 SpO2 97 I&O: 11/23/17 11/24/17 11/25/17 06:59 06:59 06:59 Intake Total 3617.8 3183.2 2860 Output Total 330 2426 2150 Balance 3287.8 757.2 710 Result Diagrams: 11/24/17 04:42 11/24/17 04:42 Additional Labs: Accuchecks 11/23/17 23:20 POC Glucose 132 H Laboratory Tests 11/23/17 11/24/17 01:01 04:42 ABG pH 7.20 L* ABG pO2 51.4 L* ABG O2 Sat Calc/Yuri 75.7 L* Phosphorus 1.6 L Magnesium 1.0 L EKG Reviewed by me: Yes (Tele SR) Phys Exam - Physical Examination Constitutional: NAD (on Vent) Cardiovascular: RRR, no rub Gastrointestinal: soft, positive bowel sounds Musculoskeletal: no edema Neuro/Psych - Cannot assess due to current mentation Dx/Plan - Plan DVT proph w/SCDs IMPRESSION: 1. Acute hypoxic hypercapnic respiratory failure due to Pulm Edema 2. Drug overdose with beta blockers in a suicidal attempt requiring Glucagon drip. 3. Afib with RVR - CHADS2 VASC score - 1 - Converted to SR 4. Chronic alcoholism with Alcohol intoxication with subsequent withdrawal. 5. ?Acalculous cholecystitis 6. Hypertension. 7. Electrolyte abnormalities - hypokalemia and hypomagnesemia. 8. Thrombocytopenia/Mild coagulopathy, probably secondary to alcoholism. 9. Cardiomyopathy with ejection fraction 40%-45%, suspected to be secondary to alcohol. 10. Chronically elevated alkaline phosphatase of unclear etiology/Chronic anemia. PLAN: Cont ASE protocol Afib mngt per Cardio Replace Electrolytes Cont ASA for stroke prophylaxis - No Anticoag due to low plts Cont Antibiotics On Mech Vent Cont Thiamine/folic acid AM labs [facility] consult when medically stable Review of Systems - Review of Systems Other: Cannot obtain due to sedation. - Medications/Allergies Allergies/Adverse Reactions: Allergies Allergy/AdvReac Type Severity Reaction Status Date / Time No Known Drug Allergies Allergy Verified 10/28/17 11:50 Medications: Current Medications Acetaminophen (Tylenol Elixir) 650 mg PO Q6H PRN PRN Reason: temp > 102 Al Hydroxide/Mg Hydroxide (Maalox) 30 ml PO Q6H PRN PRN Reason: Heartburn or Indigestion Albuterol/Ipratropium (Duoneb) 3 ml NEB [id number] [facility] Last Admin: 11/24/17 18:08 Dose: 3 ml Aspirin (Ecotrin) 81 mg PO DAILY [facility] Last Admin: 11/24/17 08:41 Dose: 81 mg Calcium Carbonate (Tums) 1,000 mg PO Q4H PRN PRN Reason: Heartburn or Indigestion Docusate Sodium (Colace) 100 mg PO BID [facility] Last Admin: 11/24/17 20:16 Dose: 100 mg Famotidine (Pepcid) 20 mg PER TUBE BID [facility] Last Admin: 11/24/17 20:16 Dose: 20 mg Folic Acid (Folvite) 1 mg PO DAILY [facility] Last Admin: 11/24/17 08:43 Dose: 1 mg Fentanyl Citrate 2,000 mcg/ (Sodium Chloride) 100 mls @ 0 mls/hr IV INF [facility]; Protocol Stop: 12/23/17 01:57 Fentanyl Citrate (Fentanyl Bolus) 250 mls @ 0 mls/hr IVPB PRN PRN PRN Reason: Breakthrough pain/agitation Stop: 12/23/17 01:57 Sodium Chloride (1/2 Normal Saline) 1,000 mls @ 0 mls/hr IV .Q0M [facility] Last Admin: 11/23/17 21:09 Dose: 1,000 mls Multivitamins 10 ml/ Folic Acid 1 mg/ Thiamine HCl 100 mg / Dextrose/Sodium Chloride 1,011.2 mls @ 75 mls/hr IV Q24HR [facility] Stop: 11/25/17 17:29 Last Admin: 11/24/17 04:29 Dose: 1,011.2 mls Metronidazole 500 mg/ Device 100 mls @ 100 mls/hr IVPB 0200,1000,1800 [facility] Last Admin: 11/24/17 18:38 Dose: 100 mls Ciprofloxacin/Dextrose 400 mg/ (Device) 200 mls @ 200 mls/hr IVPB Q12HR [facility] Last Admin: 11/24/17 20:16 Dose: 200 mls Dexmedetomidine HCl 400 mcg/ (Sodium Chloride) 100 mls @ 0 mls/hr IVPB INF [facility] ; Protocol Last Admin: 11/24/17 19:13 Dose: 100 mls Lorazepam (Ativan) 2 mg SLOW IVP Q1H PRN PRN Reason: Breakthrough agitation Stop: 12/23/17 01:57 Last Admin: 11/24/17 22:28 Dose: 2 mg Magnesium Hydroxide (Milk Of Magnesium) 30 ml PO DAILYPRN PRN PRN Reason: Constipation Mineral Oil/White Petrolatum (Lacri-Lube Ointment) 0 gm EA EYE PRN PRN PRN Reason: Dry Eyes Last Admin: 11/23/17 04:26 Dose: 1 drop Discontinue Previous Narcotic Pain Medications And Benzodiazepines 1 each FS .ONE [facility] Stop: 12/23/17 01:57 Ondansetron HCl (Zofran Odt) 4 mg PO Q6H PRN PRN Reason: Nausea/Vomiting Ondansetron HCl (Zofran) 4 mg IVP Q6H PRN PRN Reason: Nausea/Vomiting Last Admin: 11/23/17 00:37 Dose: 4 mg Propofol (Diprivan) 1,000 mg IV INF PRN; Protocol PRN Reason: TO ACHIEVE GOAL RASS Stop: 12/23/17 01:57 Last Admin: 11/24/17 19:14 Dose: 1,000 mg Propofol (Diprivan Bolus) 20 mg IV Q5MIN PRN PRN Reason: BREAKTHROUGH AGITATION Stop: 12/23/17 01:57 Senna (Senokot) 2 tab PO HSPRN PRN PRN Reason: Constipation Thiamine HCl (Thiamine) 100 mg PO DAILY [facility] Last Admin: 11/24/17 08:43 Dose: 100 mg
[2017-11-25] MEDS: Propofol 1,000 MG/100 ML VIAL IV PRN ×2 (01:03→04:15)
[2017-11-25] MEDS: metroNIDAZOLE 500 MG in Premix Bag 1 BAG IVPB SCH ×3 (01:12→18:07)
[2017-11-25] MEDS: Multivitamins, Adult 10 ML, Folic Acid 1 MG, Thiamine HCl 100 MG in Dextrose 5 %-0.45 %... IV SCH (04:15)
[2017-11-25 04:53] LABS: Anion Gap 12 mmol/L (10-20); BUN (Urea Nitrogen) Less than 4 mg/dL (8.9-20.6); Calc. Creatinine Clearance 189 mL/min (70-130); Calcium 8.4 mg/dL (7.8-10.44); Carbon Dioxide 22 mmol/L (22-29); Chloride 109 mmol/L (98-107); Estimated GFR-MDRD Greater than 90; Glucose 112 mg/dL (70-105); Potassium 3.3 mmol/L (3.5-5.1); Sodium 140 mmol/L (136-145)
[2017-11-25 04:54] LABS: #Eosinphils 0.2 thou/uL (0.0-0.7); #Monocytes 0.7 thou/uL (0.11-0.59); #Neutrophils 4.9 thou/uL (1.40-6.50); %Basophils 0.5 % (0.0-1.0); %Eosinophils 3.2 % (0.0-10.0); %Lymphocytes 14.3 % (21.0-51.0); Hemoglobin 11.1 g/dL (14.0-18.0); Mean Corpuscular HGB CONC 32.9 g/dL (32.0-36.0); Mean Corpuscular Hemoglobin 32.1 pg (27.0-31.0); Mean Corpuscular Volume 97.4 fL (78.0-98.0); Mean Platelet Volume 10.1 fL (7.4-10.4); Platelet Count 69 thou/uL (130-400); RBC Distribution Width 11.9 % (11.5-14.5); Red Blood Cell (RBC) Count 3.46 mill/uL (4.70-6.10); White Blood Cell (WBC) Count 6.7 thou/uL (4.8-10.8)
[2017-11-25] MEDS: Docusate 100 MG CAP PO SCH ×2 (09:20→20:45)
[2017-11-25] MEDS: Famotidine 20 MG TAB PER TUBE SCH ×2 (09:20→20:45)
[2017-11-25] MEDS: Aspirin 81 mg Enteric Coated Tablet PO SCH (09:21)
[2017-11-25] MEDS: Folic Acid 1 MG TAB PO SCH (09:21)
[2017-11-25] MEDS ORDERED: Magnesium Sulfate 4 GM in Sodium Chloride 0.9% 250 ML 250 ML IVPB SCH (09:30)
[2017-11-25] MEDS: Lorazepam 2 MG/ML VIAL SLOW IVP PRN ×2 (10:15→22:13)
[2017-11-25] MEDS ORDERED: Lorazepam 2 MG/ML VIAL SLOW IVP PRN (14:17)
--- NOTE | 2017-11-25 17:55 | PRG ---
DATE OF SERVICE: 11/25/2017 SERVICE: Pulmonary Medicine. INTERVAL HISTORY: The patient is doing fairly well from a mentation standpoint. This morning, we ga ve him a propofol holiday. We continue the Precedex. He is breathing quite comfortably. He woke up cool, calm and collected for a period of time. We put him on a spontaneous breathing trial and he d id quite well. That being said, he got a little bit of excitable and ended up self extubating himsel f. We watched him for a period of time and it appeared that he was going to do just fine afterwards. He cannot provide additional elements of the history right now because of a little bit of mentation issues. Otherwise, things are going okay. Nursing reports no overnight events. PHYSICAL EXAMINATION: VITAL SIGNS: Afebrile, pulse 97, blood pressure 131/95, respirations 29, saturation 97% on 31% FiO2 and a PEEP of 5. GENERAL: The patient is awake and alert, in no apparent distress. LUNGS: Decent air entry. Crackles are minimal. There is no prolonged expiratory phase or wheezing appreciated. HEART: Normal rate, regular. ABDOMEN: Soft, nontender, nondistended. Bowel sounds are positive. MUSCULOSKELETAL: No cyanosis or clubbing. There is no pitting in the bilateral lower extremities. NEUROLOGIC: Grossly nonfocal. LABORATORY DATA: WBC 6.7, hemoglobin 11.1, platelets 69,000 and gently trending upward. Creatinine 0.52. Basic metabolic profile is otherwise unremarkable except for potassium of 3.3, magnesium 1.6. Urine cultures negative to date. ASSESSMENT: 1. Acute hypoxic respiratory failure, secondary to flash pulmonary edema, improving. 2. Atrial fibrillation with rapid ventricular response, returned to normal sinus rhythm. 3. Delirium tremens, slowly improving. 4. Alcohol abuse. 5. Chronic systolic heart failure, currently euvolemic. DISCUSSION AND PLAN: We will watch him very closely to make certain we do not have to reintubate him moving forward. We will continue our Precedex drip. We will provide him with p.r.n. Ativan if need ed. Oxygen will be weaned away as tolerated. Hopefully, once his mentation allows, we will be able to start mobilizing him. CRITICAL CARE TIME: 30 minutes.
--- NOTE | 2017-11-25 17:56 | PDOC.CTH ---
Cardiology Progress Note - Subjective He is nw extubated, He denies SOB or chest pain. He is afraid his hallucinations will start again. - Objective Vital Signs Temp Pulse Resp BP Pulse Ox 11/25/17 12:55 98 16 98 11/25/17 12:00 100.6 F H 97 11/25/17 11:51 92 L 11/25/17 11:11 101 H 152/104 H 11/25/17 10:00 17 11/25/17 08:00 15 96 11/25/17 07:00 98.5 F 11/25/17 06:28 83 153/105 H 11/25/17 06:26 82 15 96 11/25/17 06:00 17 Admit Weight 135 lb Weight 150 lb 5.684 oz 11/24/17 11/25/17 11/26/17 06:59 06:59 06:59 Intake Total 3183.2 3813 1551 Output Total 2426 3600 1800 Balance 757.2 213 -249 - Physical Examination General/Neuro: alert & oriented x3, NAD Neck: no JVD present Lungs: CTA, unlabored respirations Heart: RRR Abdomen: NT/ND Extremities: other: (no edema.) - Telemetry Telemetry Rhythm: NSR - Labs Result Diagrams: 11/25/17 04:30 11/25/17 04:30 Troponin/CKMB Troponin I Less than 0.010 ng/mL (< 0.028) 11/21/17 19:35 - Assessment/Plan 1. Afib RVR, back in sinus. 2. Alcohol withdrawal. 3. Non ischemic CM EF at 40-45% 4. Alcohol abuse 5. Delirium tremens. PLAN: - Remains in sinus. - Will restart his CHF meds in the next few days once weaned of precedex and more stable. - Replace Aj
[2017-11-25] MEDS: K-Phos Neutral 250 MG TAB PO SCH (18:04)
--- NOTE | 2017-11-25 19:48 | PDOC.PN ---
- Subjective Encounter Start Date: 11/25/17 Encounter Start Time: 13:45 Patient seen and examined for OD. Extubated. No new complaints. No overnight events - Objective Resuscitation Status: Resuscitation Status FULL:Full Resuscitation MAR Reviewed: Yes Vital Signs & Weight: Vital Signs (12 hours) Temp Pulse Resp BP Pulse Ox 11/25/17 18:21 115 H 20 97 11/25/17 12:55 98 16 98 11/25/17 12:00 100.6 F H 97 11/25/17 11:51 92 L 11/25/17 11:11 101 H 152/104 H 11/25/17 10:00 17 11/25/17 08:00 15 96 Weight Admit Weight 135 lb Weight 150 lb 5.684 oz Most Recent Monitor Data Heart Rate from ECG 112 NIBP 142/102 NIBP BP-Mean 115 Respiration from ECG 22 SpO2 93 I&O: 11/24/17 11/25/17 11/26/17 06:59 06:59 06:59 Intake Total 3183.2 3813 1551 Output Total 2426 3600 2250 Balance 757.2 213 -699 Result Diagrams: 11/25/17 04:30 11/25/17 04:30 EKG Reviewed by me: Yes (Tele SR) Phys Exam - Physical Examination Constitutional: NAD Respiratory: no wheezing, no rhonchi Bibasilar rhonchi Cardiovascular: RRR, no rub Gastrointestinal: soft, non-tender, positive bowel sounds Musculoskeletal: no edema Dx/Plan - Plan DVT proph w/SCDs IMPRESSION: 1. Acute hypoxic hypercapnic respiratory failure due to Pulm Edema 2. Drug overdose with beta blockers in a suicidal attempt requiring Glucagon drip. 3. Afib with RVR - CHADS2 VASC score - 1 - Converted to SR 4. Chronic alcoholism with Alcohol intoxication with subsequent withdrawal. 5. ?Acalculous cholecystitis - on Atbx 6. Hypertension. 7. Electrolyte abnormalities - hypokalemia and hypomagnesemia. 8. Thrombocytopenia/Mild coagulopathy, probably secondary to alcoholism. 9. Cardiomyopathy with ejection fraction 40%-45%, suspected to be secondary to alcohol. 10. Chronically elevated alkaline phosphatase of unclear etiology/Chronic anemia. PLAN: Cont Precedex drip Replace Electrolytes Cont ASA for stroke prophylaxis - No Anticoag due to low plts Cont Antibiotics On Mech Vent Cont Thiamine/folic acid AM labs [facility] consult when medically stable Review of Systems - Review of Systems Cardiovascular: negative: chest pain, palpitations, orthopnea, paroxysmal nocturnal dyspnea, edema, light headedness, other Gastrointestinal: negative: Nausea, Vomiting, Abdominal Pain, Diarrhea, Constipation, Melena, Hematochezia, Other - Medications/Allergies Allergies/Adverse Reactions: Allergies Allergy/AdvReac Type Severity Reaction Status Date / Time No Known Drug Allergies Allergy Verified 10/28/17 11:50 Medications: Current Medications Acetaminophen (Tylenol Elixir) 650 mg PO Q6H PRN PRN Reason: temp > 102 Al Hydroxide/Mg Hydroxide (Maalox) 30 ml PO Q6H PRN PRN Reason: Heartburn or Indigestion Albuterol/Ipratropium (Duoneb) 3 ml NEB [id number] [facility] Last Admin: 11/25/17 18:21 Dose: 3 ml Aspirin (Ecotrin) 81 mg PO DAILY [facility] Last Admin: 11/25/17 09:21 Dose: 81 mg Calcium Carbonate (Tums) 1,000 mg PO Q4H PRN PRN Reason: Heartburn or Indigestion Docusate Sodium (Colace) 100 mg PO BID [facility] Last Admin: 11/25/17 09:20 Dose: 100 mg Famotidine (Pepcid) 20 mg PER TUBE BID [facility] Last Admin: 11/25/17 09:20 Dose: 20 mg Folic Acid (Folvite) 1 mg PO DAILY [facility] Last Admin: 11/25/17 09:21 Dose: 1 mg Sodium Chloride (1/2 Normal Saline) 1,000 mls @ 0 mls/hr IV .Q0M [facility] Last Admin: 11/23/17 21:09 Dose: 1,000 mls Metronidazole 500 mg/ Device 100 mls @ 100 mls/hr IVPB 0200,1000,1800 [facility] Last Admin: 11/25/17 18:07 Dose: 100 mls Ciprofloxacin/Dextrose 400 mg/ (Device) 200 mls @ 200 mls/hr IVPB Q12HR [facility] Last Admin: 11/25/17 09:22 Dose: 200 mls Dexmedetomidine HCl 400 mcg/ (Sodium Chloride) 100 mls @ 0 mls/hr IVPB INF [facility] ; Protocol Last Admin: 11/25/17 09:40 Dose: 100 mls Lorazepam (Ativan) 2 mg SLOW IVP Q15MIN PRN PRN Reason: Anxiety/Agitation Magnesium Hydroxide (Milk Of Magnesium) 30 ml PO DAILYPRN PRN PRN Reason: Constipation Mineral Oil/White Petrolatum (Lacri-Lube Ointment) 0 gm EA EYE PRN PRN PRN Reason: Dry Eyes Last Admin: 11/23/17 04:26 Dose: 1 drop Ondansetron HCl (Zofran Odt) 4 mg PO Q6H PRN PRN Reason: Nausea/Vomiting Ondansetron HCl (Zofran) 4 mg IVP Q6H PRN PRN Reason: Nausea/Vomiting Last Admin: 11/23/17 00:37 Dose: 4 mg Phosphorus (Kphos Neutral) 500 mg PO TID-WM [facility] Last Admin: 11/25/17 18:04 Dose: 500 mg Senna (Senokot) 2 tab PO HSPRN PRN PRN Reason: Constipation Sodium Chloride (Flush - Normal Saline) 10 ml IVF Q12HR [facility] Sodium Chloride (Flush - Normal Saline) 10 ml IVF PRN PRN PRN Reason: Saline Flush Thiamine HCl (Thiamine) 100 mg PO DAILY [facility] Last Admin: 11/25/17 09:20 Dose: 100 mg
[2017-11-26] MEDS: metroNIDAZOLE 500 MG in Premix Bag 1 BAG IVPB SCH (02:39)
[2017-11-26] MEDS: Lorazepam 2 MG/ML VIAL SLOW IVP PRN ×4 (02:41→20:52)
[2017-11-26 07:53] LABS: #Basophils 0.1 thou/uL (0.0-0.2); #Eosinphils 0.2 thou/uL (0.0-0.7); #Lymphocytes 1.5 thou/uL (1.20-3.40); #Neutrophils 6.3 thou/uL (1.40-6.50); %Eosinophils 2.2 % (0.0-10.0); %Lymphocytes 16.7 % (21.0-51.0); %Monocytes 10.8 % (0.0-10.0); %Neutrophils 69.4 % (42.0-75.0); Hemoglobin 12.7 g/dL (14.0-18.0); Mean Corpuscular Hemoglobin 31.5 pg (27.0-31.0); Mean Corpuscular Volume 98.4 fL (78.0-98.0); Mean Platelet Volume 8.8 fL (7.4-10.4); Platelet Count 139 thou/uL (130-400); RBC Distribution Width 12.4 % (11.5-14.5); Red Blood Cell (RBC) Count 4.03 mill/uL (4.70-6.10); White Blood Cell (WBC) Count 9.1 thou/uL (4.8-10.8)
[2017-11-26 08:01] LABS: Anion Gap 13 mmol/L (10-20); BUN (Urea Nitrogen) Less than 4 mg/dL (8.9-20.6); Calc. Creatinine Clearance 154 mL/min (70-130); Calcium 8.9 mg/dL (7.8-10.44); Carbon Dioxide 21 mmol/L (22-29); Chloride 104 mmol/L (98-107); Estimated GFR-MDRD Greater than 90; Glucose 93 mg/dL (70-105); Magnesium 1.5 mg/dL (1.6-2.6); Phosphorus 3.5 mg/dL (2.3-4.7); Potassium 3.3 mmol/L (3.5-5.1); Sodium 135 mmol/L (136-145)
[2017-11-26] MEDS ORDERED: Magnesium Sulfate 2 GM in Sodium Chloride 0.9% 100 ML IVPB SCH (08:45)
[2017-11-26] MEDS ORDERED: Magnesium Sulfate 4 GM in Sodium Chloride 0.9% 250 ML 250 ML IVPB SCH (09:00)
[2017-11-26] MEDS: K-Phos Neutral 250 MG TAB PO SCH ×3 (10:00→17:16)
[2017-11-26] MEDS: Aspirin 81 mg Enteric Coated Tablet PO SCH (10:00)
[2017-11-26] MEDS: Famotidine 20 MG TAB PER TUBE SCH ×2 (10:01→20:51)
[2017-11-26] MEDS: Folic Acid 1 MG TAB PO SCH (10:01)
[2017-11-26] MEDS: Docusate 100 MG CAP PO SCH (10:01)
[2017-11-26] MEDS ORDERED: Sodium Chloride 0.65% Nasal 44 ML BOT EA NARE PRN (11:42)
[2017-11-26] MEDS ORDERED: Carvedilol 3.125 MG TAB PO SCH (11:45)
[2017-11-26] MEDS ORDERED: cloNIDine 0.1 MG TAB PO SCH (11:45)
[2017-11-26] MEDS ORDERED: Amiodarone In Dextrose 200 ML IVPB SCH (12:15)
[2017-11-26] MEDS: cloNIDine 0.1 MG TAB PO SCH ×2 (15:19→20:51)
--- NOTE | 2017-11-26 17:11 | PDOC.CTH ---
Cardiology Progress Note - Subjective He had a nose bleed. No other issues. - Objective Vital Signs Temp Pulse Resp BP Pulse Ox 11/26/17 15:19 152/104 H 11/26/17 13:07 129 H 20 92 L 11/26/17 12:52 152/104 H 11/26/17 12:00 98.2 F 11/26/17 07:00 98.1 F 11/26/17 06:28 95 11/26/17 06:25 120 H 22 H 95 Admit Weight 135 lb Weight 150 lb 9.6 oz 11/25/17 11/26/17 11/27/17 06:59 06:59 06:59 Intake Total 3813 2103.4 1500 Output Total 3600 4225 400 Balance 213 -2121.6 1100 - Physical Examination General/Neuro: alert & oriented x3, NAD Neck: no JVD present Lungs: CTA, unlabored respirations Heart: RRR Abdomen: NT/ND Extremities: other: (no edema.) - Telemetry Telemetry Rhythm: NSR - Labs Result Diagrams: 11/26/17 07:33 11/26/17 07:33 Troponin/CKMB Troponin I Less than 0.010 ng/mL (< 0.028) 11/21/17 19:35 - Assessment/Plan 1. Afib RVR, back in sinus. 2. Alcohol withdrawal. 3. Non ischemic CM EF at 40-45% 4. Alcohol abuse 5. Delirium tremens. PLAN: - Remains in sinus. - Coreg already back on board, will restart Lisinopril.
[2017-11-26] MEDS: Carvedilol 3.125 MG TAB PO SCH (17:16)
--- NOTE | 2017-11-26 17:19 | PRG ---
DATE OF SERVICE: 11/26/2017 SERVICE: Pulmonary Medicine. INTERVAL HISTORY: The patient did extremely well overnight. This morning, we turned off his Precede x, but he became very agitated once again. As such, he is back on that medication. Denies any curre nt chest pain, fevers, or chills. When he is on, he is cool, calm and collected. He is oriented x3. It looks like he is not having any hallucinations. PHYSICAL EXAMINATION: VITAL SIGNS: Afebrile, pulse 129, blood pressure 152/104, respirations 16, saturation 93% on 3 liter s nasal cannula. GENERAL: The patient is awake and alert, in no apparent distress. LUNGS: Crackles are present. There is no prolonged expiratory phase or wheezing appreciated. HEART: Normal rate, regular. ABDOMEN: Soft, nontender, nondistended. Bowel sounds are positive. MUSCULOSKELETAL: No cyanosis or clubbing. There is trace pitting in the bilateral lower extremities . NEUROLOGIC: Grossly nonfocal. LABORATORY DATA: WBC 9.1, hemoglobin 12.7, platelets 139,000 and rebounding. Sodium 135, potassium 3.3. Basic metabolic profile is otherwise unremarkable. Phosphorus is normal, magnesium 1.5. Stool lactoferrin is positive, but C. diff antigen and toxin are unremarkable. ASSESSMENT: 1. Acute hypoxic respiratory failure secondary to flash pulmonary edema, improving. 2. Atrial fibrillation with rapid ventricular response, return to sinus tachycardia. 3. Delirium tremens, slowly improving. 4. Alcohol abuse. 5. Chronic systolic heart failure, currently euvolemic. PLAN: At this rate, my suspicion is that the patient will be off Precedex hopefully by tomorrow roz bradley. Pulmonary or Critical Care will continue to follow along in this location. When he goes to the floor, we will initiate a benzodiazepine taper. We will start to mobilize him, and get him into a c hair multiple times on a daily basis. For his sinus tachycardia, calcium channel alejandro will be ini tiated.
--- NOTE | 2017-11-26 21:57 | PDOC.PN ---
- Subjective Encounter Start Date: 11/26/17 Encounter Start Time: 12:00 Patient seen and examined for OD. Nose bleeding +. Tremulous. No new complaints. No overnight events - Objective Resuscitation Status: Resuscitation Status FULL:Full Resuscitation MAR Reviewed: Yes Vital Signs & Weight: Vital Signs (12 hours) Temp Pulse Resp BP Pulse Ox 11/26/17 20:51 132/94 H 11/26/17 19:00 98.6 F 11/26/17 18:22 117 H 16 96 11/26/17 16:00 98.4 F 11/26/17 15:19 152/104 H 11/26/17 13:07 129 H 20 92 L 11/26/17 12:52 152/104 H 11/26/17 12:00 98.2 F Weight Admit Weight 135 lb Weight 150 lb 9.6 oz Most Recent Monitor Data Heart Rate from ECG 103 NIBP 134/99 NIBP BP-Mean 110 Respiration from ECG 21 SpO2 96 I&O: 11/25/17 11/26/17 11/27/17 06:59 06:59 06:59 Intake Total 3813 2103.4 2200 Output Total 3600 4225 800 Balance 213 -2121.6 1400 Result Diagrams: 11/26/17 07:33 11/26/17 07:33 EKG Reviewed by me: Yes (Tele ST 130s) Phys Exam - Physical Examination Anxious/tremors + Respiratory: no wheezing, no rhonchi Cardiovascular: no rub S1S2 +, tachycardic Gastrointestinal: soft, non-tender, positive bowel sounds Musculoskeletal: no edema Neurological: moves all 4 limbs Dx/Plan - Plan DVT proph w/SCDs IMPRESSION: 1. Acute hypoxic hypercapnic respiratory failure due to Pulm Edema 2. Drug overdose with beta blockers in a suicidal attempt requiring Glucagon drip. 3. Afib with RVR - CHADS2 VASC score - 1 - Converted to SR 4. Chronic alcoholism with Alcohol intoxication with subsequent withdrawal. 5. ?Acalculous cholecystitis 6. Hypertension. 7. Electrolyte abnormalities - hypokalemia and hypomagnesemia. 8. Thrombocytopenia/Mild coagulopathy, probably secondary to alcoholism. 9. Cardiomyopathy with ejection fraction 40%-45%, suspected to be secondary to alcohol. 10. Chronically elevated alkaline phosphatase of unclear etiology/Chronic anemia. PLAN: Precedex drip discontinued Cont ASA for stroke prophylaxis - No Anticoag due to low plts Antibiotics dced Resume Coreg Add Clonidine for alcohol withdrawal Cont Thiamine/folic acid AM labs [facility] consult when medically stable Laboratory Tests 11/26/17 07:33 Magnesium 1.5 L Review of Systems - Review of Systems Respiratory: negative: Cough, Dry, Shortness of Breath, Hemoptysis, SOB with Excertion, Pleuritic Pain, Sputum, Wheezing Cardiovascular: negative: chest pain, palpitations, orthopnea, paroxysmal nocturnal dyspnea, edema, light headedness, other - Medications/Allergies Allergies/Adverse Reactions: Allergies Allergy/AdvReac Type Severity Reaction Status Date / Time No Known Drug Allergies Allergy Verified 10/28/17 11:50 Medications: Current Medications Acetaminophen (Tylenol Elixir) 650 mg PO Q6H PRN PRN Reason: temp > 102 Al Hydroxide/Mg Hydroxide (Maalox) 30 ml PO Q6H PRN PRN Reason: Heartburn or Indigestion Albuterol/Ipratropium (Duoneb) 3 ml NEB [id number] [facility] Last Admin: 11/26/17 18:22 Dose: 3 ml Aspirin (Ecotrin) 81 mg PO DAILY [facility] Last Admin: 11/26/17 10:00 Dose: 81 mg Calcium Carbonate (Tums) 1,000 mg PO Q4H PRN PRN Reason: Heartburn or Indigestion Carvedilol (Coreg) 3.125 mg PO BID-[facility] Last Admin: 11/26/17 17:16 Dose: 3.125 mg Clonidine (Catapres) 0.1 mg PO TID [facility] Last Admin: 11/26/17 20:51 Dose: 0.1 mg Famotidine (Pepcid) 20 mg PER TUBE BID [facility] Last Admin: 11/26/17 20:51 Dose: 20 mg Folic Acid (Folvite) 1 mg PO DAILY [facility] Last Admin: 11/26/17 10:01 Dose: 1 mg Dexmedetomidine HCl 400 mcg/ (Sodium Chloride) 100 mls @ 0 mls/hr IVPB INF [facility] ; Protocol Last Admin: 11/25/17 21:08 Dose: 100 mls Lisinopril (Zestril) 2.5 mg PO DAILY [facility] Lorazepam (Ativan) 2 mg SLOW IVP Q15MIN PRN PRN Reason: Anxiety/Agitation Last Admin: 09/20/18 20:52 Dose: 2 mg Magnesium Hydroxide (Milk Of Magnesium) 30 ml PO DAILYPRN PRN PRN Reason: Constipation Ondansetron HCl (Zofran Odt) 4 mg PO Q6H PRN PRN Reason: Nausea/Vomiting Ondansetron HCl (Zofran) 4 mg IVP Q6H PRN PRN Reason: Nausea/Vomiting Last Admin: 11/23/17 00:37 Dose: 4 mg Phosphorus (Kphos Neutral) 500 mg PO TID-[facility] Last Admin: 11/26/17 17:16 Dose: 500 mg Potassium Chloride (Klor-Con) 20 meq PO BID-[facility] Last Admin: 11/26/17 17:16 Dose: 20 meq Senna (Senokot) 2 tab PO HSPRN PRN PRN Reason: Constipation Sodium Chloride (Flush - Normal Saline) 10 ml IVF Q12HR [facility] Last Admin: 11/26/17 20:51 Dose: 10 ml Sodium Chloride (Flush - Normal Saline) 10 ml IVF PRN PRN PRN Reason: Saline Flush Last Admin: 11/26/17 10:01 Dose: 10 ml Sodium Chloride ([place] Nasal [place] 0.65%) 0 ml EA NARE TID PRN PRN Reason: Nasal Congestion Thiamine HCl (Thiamine) 100 mg PO DAILY [facility] Last Admin: 11/26/17 10:00 Dose: 100 mg
[2017-11-27] MEDS: Lorazepam 2 MG/ML VIAL SLOW IVP PRN ×2 (03:36→09:41)
[2017-11-27 05:05] LABS: Anion Gap 13 mmol/L (10-20); BUN (Urea Nitrogen) 4 mg/dL (8.9-20.6); Calc. Creatinine Clearance 165 mL/min (70-130); Calcium 8.7 mg/dL (7.8-10.44); Carbon Dioxide 22 mmol/L (22-29); Chloride 104 mmol/L (98-107); Estimated GFR-MDRD Greater than 90; Glucose 95 mg/dL (70-105); Magnesium 1.7 mg/dL (1.6-2.6); Potassium 3.7 mmol/L (3.5-5.1); Sodium 135 mmol/L (136-145)
[2017-11-27] MEDS ORDERED: Potassium Chloride 20 MEQ TAB PO SCH (09:00)
[2017-11-27] MEDS ORDERED: Magnesium Sulfate 4 GM in Sodium Chloride 0.9% 250 ML 250 ML IVPB SCH (09:00)
[2017-11-27] MEDS: Famotidine 20 MG TAB PER TUBE SCH (09:41)
[2017-11-27] MEDS: Folic Acid 1 MG TAB PO SCH (09:42)
[2017-11-27] MEDS: Aspirin 81 mg Enteric Coated Tablet PO SCH (09:42)
[2017-11-27] MEDS: Lisinopril 2.5 MG TAB PO SCH (09:42)
[2017-11-27] MEDS: Carvedilol 3.125 MG TAB PO SCH ×2 (09:42→17:13)
[2017-11-27] MEDS: cloNIDine 0.1 MG TAB PO SCH ×3 (09:42→20:07)
[2017-11-27] MEDS: K-Phos Neutral 250 MG TAB PO SCH ×3 (09:43→17:13)
[2017-11-27 11:50] VITALS: BMI 22.5
--- NOTE | 2017-11-27 12:06 | PRG ---
DATE OF SERVICE: 11/27/2017 SERVICE: Pulmonary Medicine INTERVAL HISTORY: The patient is doing well from a respiratory standpoint. He denies any current ch est pain, nausea, vomiting, fevers or chills. His mentation is improving. He has not been on a Prec edex overnight. He required 4 doses of Ativan to keep him cool, calm and collected. That being said , he does not have any significant tremulousness. He is still a little bit tachycardic. PHYSICAL EXAMINATION: VITAL SIGNS: Afebrile, pulse 108, blood pressure 124/91, respirations 14, saturation 92% on room air . GENERAL: The patient is awake, alert, in no apparent distress. LUNGS: Decent air entry. Rhonchi are present. They clear with cough. There is no prolonged expira tory phase or wheezing appreciated. HEART: Normal rate, regular. ABDOMEN: Soft, nontender, nondistended. Bowel sounds are positive. MUSCULOSKELETAL: No cyanosis or clubbing. There is no pitting in the bilateral lower extremities. NEUROLOGIC: Grossly nonfocal. LABORATORY DATA: WBC 9.1, hemoglobin 12.7, platelets 139,000 and rebounding. Basic metabolic profil e is completely unremarkable except for potassium of 3.7. ASSESSMENT: 1. Acute hypoxic respiratory failure, resolving. 2. Flash pulmonary edema secondary to hypertensive episode, resolved. 3. Atrial fibrillation with rapid ventricular response, returned to sinus tachycardia. 4. Delirium tremens, slowly improving. 5. Alcohol abuse. 6. Chronic systolic heart failure, currently euvolemic. DISCUSSION AND PLAN: We will continue working with physical therapy. At this point, we will schedul e Ativan over the next 2-3 days. This will be a slow taper. He is stable for transition to the tele metry unit. He needs to be observed until he is off the anxiolytics altogether.
[2017-11-27] MEDS: Lorazepam 1 MG TAB PO SCH ×2 (14:47→20:07)
--- NOTE | 2017-11-27 15:31 | PDOC.CTH ---
Cardiology Progress Note - Subjective No new issues, no new complaints. - Objective Vital Signs Temp Pulse Resp BP Pulse Ox 11/27/17 15:03 98 F 11/27/17 14:46 132/94 H 11/27/17 11:00 99 F 11/27/17 09:42 112 H 132/94 H 11/27/17 07:00 98.7 F 11/27/17 06:28 96 11/27/17 06:27 112 H 20 96 Admit Weight 135 lb Weight 148 lb 2.41 oz 11/26/17 11/27/17 11/28/17 06:59 06:59 06:59 Intake Total 2103.4 2300 1150 Output Total 4225 1100 701 Balance -2121.6 1200 449 - Physical Examination General/Neuro: alert & oriented x3, NAD Neck: no JVD present Lungs: CTA, unlabored respirations Heart: RRR Abdomen: NT/ND Extremities: other: (no edema.) - Telemetry Telemetry Rhythm: S tach - Labs Result Diagrams: 11/26/17 07:33 11/27/17 04:27 Troponin/CKMB Troponin I Less than 0.010 ng/mL (< 0.028) 11/21/17 19:35 - Assessment/Plan 1. Afib RVR, back in sinus. 2. Alcohol withdrawal. 3. Non ischemic CM EF at 40-45% 4. Alcohol abuse 5. Delirium tremens. PLAN: - Remains in sinus. - Continue BB and ACEI at current doses.
--- NOTE | 2017-11-27 19:33 | PRG ---
DATE OF SERVICE: 11/27/2017 SUMMARY: A 42-year-old white male with chronic alcoholism and recently diagnosed cardiomyopathy, on carvedilol, presented to the hospital on 11/21/2017 with drug overdose. Last month, he was admitted at this facility and was started on carvedilol and lisinopril. The patient overdosed on carvedilol i n the setting of alcohol intoxication. He was admitted to the [facility] for close monitoring. He was on glucagon drip for beta alejandro overdose. He developed atrial fibrillation with rapid ventricular res ponse, requiring Cardizem drip. He went into severe alcohol withdrawal, requiring intubation and Pre cedex drip. Over the last 48 hours, the patient has been extubated. He had some nose bleeding yeste rday that improved with nasal packing by ER physician. He is currently in sinus rhythm. SUBJECTIVE: The patient denies any new complaints, still has some generalized tremors. Asking if he can go home. [facility] at the bedside. OBJECTIVE: VITAL SIGNS: The patient is afebrile with a blood pressure 132/94 with a heart rate still in 130S, r espiration of 20. GENERAL: A 42-year-old male in no apparent distress, anxious, generalized tremors noted. LUNGS: Clear to auscultation bilaterally. HEART: S1, S2 present. ABDOMEN: Soft, bowel sounds present. EXTREMITIES: No edema or calf tenderness. NEUROLOGIC: Grossly nonfocal. LABORATORY FINDINGS: Potassium 3.7 from 3.3 yesterday. Magnesium 1.7 from 1.5 yesterday. No CBC do ne today. Telemetry monitoring by my review showed sinus tachycardia. IMPRESSION: 1. Drug overdose with beta blockers, requiring glucagon drip (suicidal attempt). [facility] evaluated the patient today. The patient's mother will be arriving on Thursday from [place]. His mother is trying t o find an alcohol rehab in the [place] area. 2. Acute hypoxic and hypercapnic respiratory failure with pulmonary edema, requiring mechanical vent ilation. 3. Delirium tremens, improving. 4. Chronic alcoholism. 5. Hypertension. 6. Electrolyte abnormalities, improving. 7. Thrombocytopenia, improving. 8. Chronic systolic heart failure, ejection fraction 40%-45%. Carvedilol has been restarted. We wi ll continue lisinopril. 9. Atrial fibrillation with rapid ventricular response. He is currently on aspirin for stroke proph ylaxis. He is currently in sinus rhythm. 10. Chronic anemia. DISPOSITION: As discussed above. The patient is not cleared for discharge. We will continue alcoho l withdrawal protocol. Thiamine and folic acid will be continued.
[2017-11-28] MEDS: Lorazepam 2 MG/ML VIAL SLOW IVP PRN (05:41)
[2017-11-28] MEDS: Aspirin 81 mg Enteric Coated Tablet PO SCH (09:07)
[2017-11-28] MEDS: Folic Acid 1 MG TAB PO SCH (09:07)
[2017-11-28] MEDS: Carvedilol 3.125 MG TAB PO SCH ×2 (09:07→16:14)
[2017-11-28] MEDS: cloNIDine 0.1 MG TAB PO SCH ×3 (09:08→20:22)
[2017-11-28] MEDS: Lisinopril 2.5 MG TAB PO SCH (09:08)
[2017-11-28] MEDS: Lorazepam 1 MG TAB PO SCH ×3 (09:09→20:23)
[2017-11-28] MEDS: K-Phos Neutral 250 MG TAB PO SCH ×3 (09:09→16:14)
--- NOTE | 2017-11-28 11:55 | PDOC.PN ---
- Subjective Encounter Start Date: 11/28/17 Encounter Start Time: 11:54 Mr. Feliciano was seen today in follow-up of Beta-alejandro overdose, Atrial fibrillation. He says he sometimes feels like i is a little hard to breath, and feels a bit anxious, but otherwise no complaints. - Objective Resuscitation Status: Resuscitation Status FULL:Full Resuscitation MAR Reviewed: Yes Vital Signs & Weight: Vital Signs (12 hours) BP 11/28/17 04:00 157/101 H Weight Admit Weight 135 lb Weight 132 lb 11.2 oz Most Recent Monitor Data Heart Rate from ECG 98 NIBP 130/91 NIBP BP-Mean 104 Respiration from ECG 16 SpO2 86 I&O: 11/27/17 11/28/17 11/29/17 06:59 06:59 06:59 Intake Total 2300 1150 Output Total 1100 701 Balance 1200 449 Result Diagrams: 11/26/17 07:33 11/27/17 04:27 Phys Exam - Physical Examination HEENT: PERRLA, sclera anicteric Respiratory: no wheezing, no rales, no rhonchi, clear to auscultation bilateral Cardiovascular: RRR, no significant murmur, no rub no gallop Gastrointestinal: soft, non-tender, no distention, positive bowel sounds Musculoskeletal: no edema Dx/Plan (1) Suicide attempt by beta alejandro overdose Code(s): T44.7X2A - POISONING BY BETA-ADRENOCPT ANTAGONISTS, SELF-HARM, INIT Status: Acute (2) Atrial fibrillation Code(s): I48.91 - UNSPECIFIED ATRIAL FIBRILLATION Status: Acute (3) Delirium tremens Code(s): F10.231 - ALCOHOL DEPENDENCE WITH WITHDRAWAL DELIRIUM Status: Acute (4) Alcoholism Code(s): F10.20 - ALCOHOL DEPENDENCE, UNCOMPLICATED Status: Chronic - Plan * Beta- alejandro overdose- this has resolved, and he is now back on a low dose Carvediolol * Delerium tremens- resolving- he still has very mild tremor, and agitation- continue ativan as needed * Chronic systolic heart failure compensated- continue Lisinopril * Hopefully stable for [facility] evaluation soon .
--- NOTE | 2017-11-28 12:13 | PRG ---
DATE OF SERVICE: 11/28/2017 SUBJECTIVE: He was transferred to a monitored bed. OBJECTIVE: VITAL SIGNS: His blood pressure is 157/101, temperature is 98, pulse is 107, respiration rate 18. GENERAL: He appears to be encephalopathic, but felt very appropriate. CHEST: Decreased breath sounds, no wheezing. CARDIAC: Sinus tachycardia. ABDOMEN: Soft. IMPRESSION: 1. Status post respiratory failure. 2. Status post overdose and beta blockers, respiratory failure and encephalopathy. PLAN: Continue observation in the monitored bed. Eventually, he is going to need counseling. We wi ll follow while in the MICU.
--- NOTE | 2017-11-28 18:24 | EKG ---
Test Reason : OD Blood Pressure : / mmHG Vent. Rate : 090 BPM Atrial Rate : 090 BPM P-R Int : 142 ms QRS Dur : 102 ms QT Int : 444 ms P-R-T Axes : 048 -10 -01 degrees QTc Int : 543 ms Normal sinus rhythm T wave abnormality, consider anterolateral ischemia Prolonged QT Abnormal ECG Left ventricular hypertrophy Left atrial enlargement Confirmed by BRANDEE KUMAR, SHANE Catherine ([id number]), purchase request editor PETRA ZARCO ([id number]) on 11/28/2017 6:23:41 PM Referred By: Confirmed By:SHANE IRVIN MD
[2017-11-29] MEDS: Carvedilol 3.125 MG TAB PO SCH ×2 (08:28→17:30)
[2017-11-29] MEDS: K-Phos Neutral 250 MG TAB PO SCH ×3 (08:29→17:30)
[2017-11-29] MEDS: Aspirin 81 mg Enteric Coated Tablet PO SCH (08:29)
[2017-11-29] MEDS: Lorazepam 0.5 MG TAB PO SCH ×2 (08:30→15:00)
[2017-11-29] MEDS: Lisinopril 2.5 MG TAB PO SCH (08:30)
[2017-11-29] MEDS: cloNIDine 0.1 MG TAB PO SCH ×2 (08:30→15:00)
[2017-11-29] MEDS: Folic Acid 1 MG TAB PO SCH (08:30)
--- NOTE | 2017-11-29 12:44 | PDOC.PN ---
- Subjective Encounter Start Date: 11/29/17 Encounter Start Time: 12:42 Mr. Feliciano was seen today in follow-up of Beta-alejandro overdose, and DT. He says he felt a little lightheaded when he got up, but it was inly for a short period. He otherwise does not have any other complaints. - Objective Resuscitation Status: Resuscitation Status FULL:Full Resuscitation MAR Reviewed: Yes Vital Signs & Weight: Vital Signs (12 hours) Temp Pulse Resp BP BP Pulse Ox 11/29/17 11:48 97.9 F 88 16 117/77 96 11/29/17 07:25 98.5 F 98 16 148/101 H 98 11/29/17 05:38 92 L 11/29/17 04:00 142/100 H 11/29/17 03:35 98.9 F 100 18 142/100 H 92 L Weight Admit Weight 135 lb Weight 129 lb 11.2 oz Most Recent Monitor Data Heart Rate from ECG 98 NIBP 130/91 NIBP BP-Mean 104 Respiration from ECG 16 SpO2 86 I&O: 11/28/17 11/29/17 11/30/17 06:59 06:59 06:59 Intake Total 1150 1974 Output Total 701 1250 Balance 449 724 Result Diagrams: 11/26/17 07:33 11/27/17 04:27 Phys Exam - Physical Examination HEENT: PERRLA Respiratory: no wheezing, no rales, no rhonchi, clear to auscultation bilateral Cardiovascular: RRR, no significant murmur, no rub Gastrointestinal: soft, non-tender, no distention, positive bowel sounds Musculoskeletal: no edema Dx/Plan (1) Suicide attempt by beta alejandro overdose Code(s): T44.7X2A - POISONING BY BETA-ADRENOCPT ANTAGONISTS, SELF-HARM, INIT Status: Acute (2) Atrial fibrillation Code(s): I48.91 - UNSPECIFIED ATRIAL FIBRILLATION Status: Acute (3) Delirium tremens Code(s): F10.231 - ALCOHOL DEPENDENCE WITH WITHDRAWAL DELIRIUM Status: Acute (4) Alcoholism Code(s): F10.20 - ALCOHOL DEPENDENCE, UNCOMPLICATED Status: Chronic - Plan * Beta-alejandro toxicity- resolved * Delerium tremens- essentially resolved * AFIB- transient-likely related to alcohol withdrawal. Continue low does Carvediolol * Alcoholism- he says he plans to go into treatment once he is discharged from the hospital * Suicide attempt- he now says he was not actually trying to kill himself. He says he took the handful of pills in front of his girlfriend because he knew she would call an ambulance, and this would in turn get him admitted into the hospital. He says he did not know what affect the pills would have on him.- Will call [facility] to evaluate, for a safe discharge plan
--- NOTE | 2017-11-29 13:07 | PRG ---
DATE OF SERVICE: 11/29/2017 SUBJECTIVE: This morning, he is awake, alert, responsive, no longer agitated. OBJECTIVE: VITAL SIGNS: Blood pressure 148/100, temperature is 98.5, pulse is 95, sats are 98, respirations 16. CHEST: Reveals no wheezing or crackles. CARDIAC: Normal S1, S2, no gallops. ABDOMEN: Soft, no masses. IMPRESSION: 1. Status post overdose beta alejandro. 2. Respiratory failure. PLAN: Continue supportive care, eventually counseling.
--- NOTE | 2017-11-29 14:23 | EKG ---
Test Reason : STAT Blood Pressure : / mmHG Vent. Rate : 163 BPM Atrial Rate : 163 BPM P-R Int : 126 ms QRS Dur : 084 ms QT Int : 226 ms P-R-T Axes : 061 025 172 degrees QTc Int : 372 ms Sinus tachycardia Septal infarct , age undetermined Abnormal ECG When compared with ECG of 28-OCT-2017 09:52, Vent. rate has increased BY 62 BPM QRS voltage has decreased Septal infarct is now Present ST now depressed in Anterior leads Confirmed by REBECA SANCHEZ ([id number]) on 11/29/2017 2:23:13 PM Referred By: ED Confirmed By:REBECA SANCHEZ
[2017-11-29 15:00] VITALS: TEMP 98.2
[2017-11-29 16:42] VITALS: BP 152/98
--- NOTE | 2017-11-29 22:51 | DIS ---
PRIMARY CARE PHYSICIAN: Cristo Torers. DATE OF ADMISSION: 11/21/2017 DATE OF DISCHARGE: 11/29/2017 DISCHARGE DISPOSITION: Home. PRIMARY DISCHARGE DIAGNOSES: 1. Suicidal attempt with beta alejandro overdose. 2. Atrial fibrillation with rapid ventricular response, resolved. 3. Delirium tremens. 4. Chronic alcoholism. 5. Chronic systolic heart failure. DISCHARGE MEDICATIONS: Carvedilol 3.125 mg twice daily, lisinopril 2.5 mg daily, and thiamine 100 mg daily. PROCEDURES DONE DURING ADMISSION: The patient had an abdominal ultrasound showing thick walled gallb ladder. There was some questionable gallbladder wall edema. There were no stones identified, could indicate acalculous cholecystitis, but also could indicate intrinsic liver disease. The liver itself was enlarged and had increased echogenicity consistent with fatty change. CODE STATUS: FULL CODE. ALLERGIES: No known drug allergies. HOSPITAL COURSE: Mr. Feliciano is a pleasant 42-year-old gentleman who was brought to the hospital af ter he took a handful of carvedilol in the attempts to try to harm himself. He was brought to the em ergency room, he was given glucagon and required intubation initially to protect his airway. The pat ient went into delirium tremens the following day as well as atrial fibrillation with rapid ventricul ar response. His rate was controlled initially with IV Cardizem. Once he was able to be extubated, he was transitioned over to carvedilol which controlled his heart rate very well. He was also placed on a low dose TRIP inhibitor due to a known history of chronic systolic heart failure. He had signif icant electrolyte derangements which were replaced and likely as a result of chronic alcohol use. [place], he retracted the suicide attempt and said that he actually took the pills in order to be hospita lized for alcohol dependence. He says that he has tried on numerous occasions to get treatment and w as drinking because he needed to function because every time he tried to stop, he would "feel bad." He says he took the pills in front of his girlfriend who he says he knew she would call the ambulance and then be admitted to the hospital. He was evaluated by [facility] prior to discharge and a safe discha rge plan home was formulated and the patient will be discharged home today on 11/29/2017 and he is to follow up with his primary care in 1-2 weeks and he also has made plans for alcohol treatment in the outpatient setting.
== END 2017-11-29 19:23 | disposition home or self-care (01) | DRG 917 ==
LOC: ERS 13:06 → IMCU/EMU 15:00 → CCU 11-23 01:07 → 2NO 11-27 17:29
PROVIDERS: ADMIT Internal Medicine; ATTEND Internal Medicine
PROC: 0BH17EZ Insertion of Endotracheal Airway into Trachea, Via Natural or Artificial Opening (ICD-10-PCS; principal; 2017-11-23)
PROC: 5A1945Z Respiratory Ventilation, 24-96 Consecutive Hours (ICD-10-PCS; 2017-11-23)
DX: T44.7X2A Poisoning by beta-adrenoreceptor antagonists, intentional self-harm, initial encounter (principal); J96.02 Acute respiratory failure with hypercapnia; J96.01 Acute respiratory failure with hypoxia; F10.231 Alcohol dependence with withdrawal delirium; I50.22 Chronic systolic (congestive) heart failure; F10.239 Alcohol dependence with withdrawal, unspecified; I42.0 Dilated cardiomyopathy; Y92.9 Unspecified place or not applicable; I48.91 Unspecified atrial fibrillation; Y90.9 Presence of alcohol in blood, level not specified; D69.6 Thrombocytopenia, unspecified; E87.6 Hypokalemia; E83.42 Hypomagnesemia
CPT/HCPCS: 36415; 36416; 71045; 76705; 80048; 80053; 80306; 80307; 81003; 81015; 82550; 82805; 83630; 83690; 83735; 84100; 84439; 84443; 84484; 85025; 85610; 85730; 87086; 87324; 87449; 93005; 93010; 94002; 94003; 94640; 94660; 94760; 96361; 96365; 96375; A4216; J0456; J0696; J0744; J1610; J1650; J1940; J2060; J2405; J2704; J3411; J3475; J7042; J7050; J7620